=== PATIENT | female | born 1945 | race Caucasian/White ===

== ENCOUNTER 2017-08-20 15:23 | Emergency (ER) | payer OTHER ==
[~2017-08-20] VITALS: Ht 157.5 cm; Wt 60.0 kg
[2017-08-20 15:31] VITALS: BP_SYST 214; BP_SYST 215; BP_DIAS 80; BP_DIAS 91; PULSE 77; RESP 16; TEMP 98.1; O2SAT 98
[2017-08-20] MEDS ORDERED: ENALAPRILAT 2.5 MG/2 ML VIAL IV PUSH ONE (15:45)
[2017-08-20] MEDS ORDERED: SODIUM CHLORIDE 0.9% FLUSH 10 ML FLUSH IVF PRN (15:45)
[2017-08-20 15:46] VITALS: BP 204/86; PULSE 74; RESP 18; O2SAT 100
[2017-08-20 16:06] VITALS: RESP 18; O2SAT 98
--- NOTE | 2017-08-20 16:06 | PD ---
HPI Chief Complaint: Cardiac Complaint Time Seen by Provider: 15:37 Travel History International Travel<30 days: No Contact w/Intl Traveler<30days: No Traveled to known affect area: No History of Present Illness HPI Patient is a 71-year-old female presenting to [facility] for evaluation of dizziness and elevated blood pressure. Patient initially went to an urgent care center because she states she just "does not feel right". She states she has been dizzy since she went to work this morning, she does not differentiate or explain what she means by does not feel right. She denies any headache, chest pain, shortness of breath, palpitations, abdominal pain, nausea, vomiting. Patient states that her primary doctor increased her blood pressure medicine from 5 mg to 10 mg yesterday. Patient has no other complaints. Symptom onset was sudden, symptoms are mild to moderate in nature. No alleviating or exacerbating factors at this point. Patient denies any shortness of breath with exertion or edema in her extremities. PFSH Past Medical History Hypertension: Yes Social History Alcohol Use: No Tobacco Use: No Substance Use: No Allergies-Medications (Allergen,Severity, Reaction): Coded Allergies: No Known Allergies (Verified Allergy, Unknown, 08/20/17) Reported Meds & Prescriptions Reported Meds & Active Scripts Active Reported Amlodipine (Amlodipine Besylate) 5 Mg Tab 5 Mg PO DAILY Review of Systems Except as stated in HPI: all other systems reviewed are Neg HENT: Positive: Headaches, Lightheadedness Neurologic: Positive: Dizziness, No: Headache Physical Exam Narrative GENERAL: Well-developed, well-nourished, well-appearing female. Presenting in no acute distress. SKIN: Warm and dry. HEAD: Atraumatic. Normocephalic. EYES: Pupils equal and round. No scleral icterus. No injection or drainage. ENT: No nasal bleeding or discharge. Mucous membranes pink and moist. NECK: Trachea midline. No JVD. CARDIOVASCULAR: Regular rate and rhythm. RESPIRATORY: No accessory muscle use. Clear to auscultation. Breath sounds equal bilaterally. GASTROINTESTINAL: Abdomen soft, non-tender, nondistended. Hepatic and splenic margins not palpable. MUSCULOSKELETAL: Extremities without clubbing, cyanosis, or edema. No obvious deformities. NEUROLOGICAL: Awake and alert. No obvious cranial nerve deficits. Motor grossly within normal limits. Five out of 5 muscle strength in the arms and legs. Normal speech. PSYCHIATRIC: Appropriate mood and affect; insight and judgment normal. Data Data Last Documented VS Vital Signs Date Time Temp Pulse Resp B/P (MAP) Pulse Ox O2 Delivery O2 Flow Rate FiO2 08/20/17 18:50 73 18 153/76 (101) 100 Room Air 08/20/17 15:31 98.1 Orders Orders Electrocardiogram (08/20/17 15:44) Ckmb (Isoenzyme) Profile (08/20/17 15:44) Complete Blood Count With Diff (08/20/17 15:44) Comprehensive Metabolic Panel (08/20/17 15:44) Magnesium (Mg) (08/20/17 15:44) Prothrombin Time / Inr (Pt) (08/20/17 15:44) Act Partial Throm Time (Ptt) (08/20/17 15:44) Troponin I (08/20/17 15:44) Lipase (08/20/17 15:44) Chest, Single Ap (08/20/17 15:44) Ecg Monitoring (08/20/17 15:44) Bilateral Bp Monitoring (08/20/17 15:44) Iv Access Insert/Monitor (08/20/17 15:44) Oximetry (08/20/17 15:44) Oxygen Administration (08/20/17 15:44) Sodium Chloride 0.9% Flush (Ns Flush) (08/20/17 15:45) Thyroid Stimulating Hormone (08/20/17 15:44) Free Thyroxine (T4) (08/20/17 15:44) Ct Brain W/O Iv Contrast(Rout) (08/20/17 ) Enalaprilat Inj (Vasotec Inj) (08/20/17 15:45) CKMB (08/20/17 15:53) CKMB% (08/20/17 15:53) Troponin I (08/20/17 19:00) Labs Laboratory Tests Test 08/20/17 15:53 08/20/17 18:50 White Blood Count 7.9 TH/MM3 Red Blood Count 2.81 MIL/MM3 Hemoglobin 8.1 GM/DL Hematocrit 23.4 % Mean Corpuscular Volume 83.4 FL Mean Corpuscular Hemoglobin 28.8 PG Mean Corpuscular Hemoglobin Concent 34.6 % Red Cell Distribution Width 16.1 % Platelet Count 422 TH/MM3 Mean Platelet Volume 7.0 FL Neutrophils (%) (Auto) 64.2 % Lymphocytes (%) (Auto) 15.3 % Monocytes (%) (Auto) 15.3 % Eosinophils (%) (Auto) 4.4 % Basophils (%) (Auto) 0.8 % Neutrophils # (Auto) 5.0 TH/MM3 Lymphocytes # (Auto) 1.2 TH/MM3 Monocytes # (Auto) 1.2 TH/MM3 Eosinophils # (Auto) 0.3 TH/MM3 Basophils # (Auto) 0.1 TH/MM3 CBC Comment DIFF FINAL Differential Comment Prothrombin Time 9.9 SEC Prothromb Time International Ratio 1.0 RATIO Activated Partial Thromboplast Time 22.7 SEC Blood Urea Nitrogen 8 MG/DL Creatinine 0.64 MG/DL Random Glucose 98 MG/DL Total Protein 7.6 GM/DL Albumin 3.6 GM/DL Calcium Level 8.7 MG/DL Magnesium Level 2.0 MG/DL Alkaline Phosphatase 78 U/L Aspartate Amino Transf (AST/SGOT) 21 U/L Alanine Aminotransferase (ALT/SGPT) 18 U/L Total Bilirubin 0.1 MG/DL Sodium Level 138 MEQ/L Potassium Level 3.7 MEQ/L Chloride Level 103 MEQ/L Carbon Dioxide Level 24.5 MEQ/L Anion Gap 11 MEQ/L Estimat Glomerular Filtration Rate 91 ML/MIN Total Creatine Kinase 133 U/L Creatine Kinase MB 2.4 NG/ML Troponin I LESS THAN 0.02 NG/ML LESS THAN 0.02 NG/ML Lipase 191 U/L Free Thyroxine 0.96 NG/DL Thyroid Stimulating Hormone 3rd Gen 1.370 uIU/ML MDM Medical Decision Making Medical Screen Exam Complete: Yes Emergency Medical Condition: Yes Medical Record Reviewed: Yes Interpretation(s) Last Impressions Chest X-Ray 08/20/17 1544 Signed Impressions: CONCLUSION: No active disease. Head CT 08/20/17 0000 Signed Impressions: CONCLUSION: 1. Negative noncontrast CT brain. Laboratory Tests Test 08/20/17 15:53 08/20/17 18:50 White Blood Count 7.9 TH/MM3 Red Blood Count 2.81 MIL/MM3 Hemoglobin 8.1 GM/DL Hematocrit 23.4 % Mean Corpuscular Volume 83.4 FL Mean Corpuscular Hemoglobin 28.8 PG Mean Corpuscular Hemoglobin Concent 34.6 % Red Cell Distribution Width 16.1 % Platelet Count 422 TH/MM3 Mean Platelet Volume 7.0 FL Neutrophils (%) (Auto) 64.2 % Lymphocytes (%) (Auto) 15.3 % Monocytes (%) (Auto) 15.3 % Eosinophils (%) (Auto) 4.4 % Basophils (%) (Auto) 0.8 % Neutrophils # (Auto) 5.0 TH/MM3 Lymphocytes # (Auto) 1.2 TH/MM3 Monocytes # (Auto) 1.2 TH/MM3 Eosinophils # (Auto) 0.3 TH/MM3 Basophils # (Auto) 0.1 TH/MM3 CBC Comment DIFF FINAL Differential Comment Prothrombin Time 9.9 SEC Prothromb Time International Ratio 1.0 RATIO Activated Partial Thromboplast Time 22.7 SEC Blood Urea Nitrogen 8 MG/DL Creatinine 0.64 MG/DL Random Glucose 98 MG/DL Total Protein 7.6 GM/DL Albumin 3.6 GM/DL Calcium Level 8.7 MG/DL Magnesium Level 2.0 MG/DL Alkaline Phosphatase 78 U/L Aspartate Amino Transf (AST/SGOT) 21 U/L Alanine Aminotransferase (ALT/SGPT) 18 U/L Total Bilirubin 0.1 MG/DL Sodium Level 138 MEQ/L Potassium Level 3.7 MEQ/L Chloride Level 103 MEQ/L Carbon Dioxide Level 24.5 MEQ/L Anion Gap 11 MEQ/L Estimat Glomerular Filtration Rate 91 ML/MIN Total Creatine Kinase 133 U/L Creatine Kinase MB 2.4 NG/ML Troponin I LESS THAN 0.02 NG/ML LESS THAN 0.02 NG/ML Lipase 191 U/L Free Thyroxine 0.96 NG/DL Thyroid Stimulating Hormone 3rd Gen 1.370 uIU/ML Vital Signs Date Time Temp Pulse Resp B/P (MAP) Pulse Ox O2 Delivery O2 Flow Rate FiO2 08/20/17 15:46 74 18 204/86 (125) 100 Room Air 08/20/17 15:31 98.1 77 16 214/80 (124) 98 215/91 (132) Differential Diagnosis CVA versus TIA versus ACS versus [place] versus metabolic abnormality versus hypertensive urgency versus vertigo versus other Narrative Course Patient is a 71-year-old female presenting for evaluation of dizziness and vague physical complaints. Patient is hypertensive on arrival. She has a history of hypertension and her medications were adjusted yesterday. She has no complaints of chest pain or shortness of breath. Labs and imaging ordered and pending. Initial EKG shows normal sinus rhythm at a rate of 67. CT of the brain shows no acute findings Chest x-ray shows no acute disease CBC with a hemoglobin of 8.1/23.4, elevated monocytes at 15.3% Chemistry is unremarkable, thyroid panel is unremarkable. Cardiac enzymes are negative 1 set Will reassess a second troponin in 1 hour if negative patient will be discharged home with follow-up with her primary doctor. Plan of care discussed with my attending physician, Dr. Bryant prior to the end of his shift. Second troponin is negative. Patient reports feeling better. Patient is advised to follow-up with her primary doctor. She was also advised to return to emergency department for any new or worsening symptoms. Patient verbalized understanding these instructions. Patient stable for discharge. Diagnosis Primary Impression: Hypertension Qualified Codes: I10 - Essential (primary) hypertension Additional Impression: Anemia Qualified Codes: D64.89 - Other specified anemias Referrals: Primary Care Physician 2 days Patient Instructions: Anemia (ED), General Instructions, Hypertension (DC) Additional Instructions: Follow-up with your primary doctor in 2-3 days Return to emergency department for any new or worsening symptoms Continue home medications as previously prescribed Your blood pressure was elevated on arrival to the emergency department, follow- up with your primary doctor for possible medication adjustment Take lisinopril once a day as directed, do not skip doses of blood pressure medications to avoid rebound hypertension. Med/Other Pt SpecificInfo: Prescription(s) given Scripts Lisinopril (Lisinopril) 10 Mg Tab 10 MG PO DAILY, #30 TAB 0 Refills Prov: Selene Mcmullen 08/20/17 Disposition: 01 DISCHARGE HOME Condition: Stable Selene Mcmullen Aug 20, 2017 16:06
--- NOTE | 2017-08-20 16:10 | RADRPT ---
EXAM DATE: 08/20/2017 4:02 PM EDT AGE/SEX: 71 years / Female INDICATIONS: Chest pain. Possible high blood pressure. CLINICAL DATA: This is the patient's initial encounter. Patient reports that signs and symptoms have been present for 1 day and indicates a pain score of 2/10. MEDICAL/SURGICAL HISTORY: Hypertension. Chronic obstructive pulmonary disease. None. COMPARISON: No prior exams available for comparison. FINDINGS: A single AP view of the chest demonstrates the lungs to be symmetrically aerated without evidence of mass, infiltrate or effusion. The cardiomediastinal contours are unremarkable. Osseous structures a re intact. CONCLUSION: No active disease. Electronically signed by: Yoseph Smith MD 08/20/2017 4:09 PM EDT
--- NOTE | 2017-08-20 16:18 | RADRPT ---
EXAM DATE: 08/20/2017 4:15 PM EDT AGE/SEX: 71 years / Female INDICATIONS: Sent from urgent care, dizziness and heart palpitations. CLINICAL DATA: This is the patient's initial encounter. Patient reports that signs and symptoms have been present for 1 day and indicates a pain score of 0/10. MEDICAL/SURGICAL HISTORY: None. None. RADIATION DOSE: 56.35 CTDI (mGy) COMPARISON: No prior exams available for comparison. TECHNIQUE: CT of the head without contrast. Using automated exposure control and adjustment of the mA and/or kV according to patient size, radiation dose was kept as low as reasonably achievable to ob tain optimal diagnostic quality images. FINDINGS: Cerebrum: The ventricles are normal for age. No evidence of midline shift, mass lesion, hemorrhage or acute infarction. No extraaxial fluid collections are seen. Posterior Fossa: The cerebellum and brainstem are intact. The 4th ventricle is midline. The cerebe llopontine angle is unremarkable. Extracranial: The visualized portion of the orbits is intact. Skull: The calvaria is intact. No evidence of skull fracture. CONCLUSION: 1. Negative noncontrast CT brain. Electronically signed by: Adriano Boyer MD 08/20/2017 4:16 PM EDT
[2017-08-20 16:34] LABS: BASOPHIL # 0.1 TH/MM3 (0-0.2); BASOPHIL % 0.8 % (0.0-2.0); EOSINOPHIL # 0.3 TH/MM3 (0-0.4); EOSINOPHIL % 4.4 % (0.0-4.0); HEMATOCRIT 23.4 % (35.0-46.0); HEMOGLOBIN 8.1 GM/DL (11.6-15.3); LYMPH % 15.3 % (9.0-44.0); LYMPHOCYTE # 1.2 TH/MM3 (1.0-4.8); MEAN CELL VOLUME 83.4 FL (80.0-100.0); MEAN CORPUSCULAR HEMOGLOBIN 28.8 PG (27.0-34.0); MEAN CORPUSCULAR HGB CONC 34.6 % (32.0-36.0); MONO % 15.3 % (0.0-8.0); MONOCYTE # 1.2 TH/MM3 (0-0.9); NEUT % 64.2 % (16.0-70.0); PLATELET COUNT 422 TH/MM3 (150-450); RED BLOOD COUNT 2.81 MIL/MM3 (4.00-5.30); RED CELL DISTRIBUTION WIDTH 16.1 % (11.6-17.2); WHITE BLOOD COUNT 7.9 TH/MM3 (4.0-11.0)
[2017-08-20 16:39] LABS: PROTHROMBIN TIME - PATIENT 9.9 SEC (9.8-11.6)
[2017-08-20 16:40] LABS: ALBUMIN 3.6 GM/DL (3.4-5.0); ALT (GPT) 18 U/L (10-53); AST (GOT) 21 U/L (15-37); BICARBONATE 24.5 MEQ/L (21.0-32.0); BLOOD UREA NITROGEN 8 MG/DL (7-18); CALCIUM 8.7 MG/DL (8.5-10.1); CHLORIDE 103 MEQ/L (98-107); CREATININE 0.64 MG/DL (0.50-1.00); GLOMERULAR FILTRATION RATE 91 ML/MIN (>89); GLUCOSE,RANDOM 98 MG/DL (74-106); SODIUM (NA) 138 MEQ/L (136-145)
[2017-08-20 16:49] LABS: ALKALINE PHOSPHATASE 78 U/L (45-117); FREE T4 0.96 NG/DL (0.76-1.46); TOTAL BILIRUBIN ADULT 0.1 MG/DL (0.2-1.0); TOTAL PROTEIN 7.6 GM/DL (6.4-8.2); TROPONIN I LESS THAN 0.02 NG/ML (0.02-0.05)
[2017-08-20 16:59] VITALS: BP 161/72; PULSE 63; RESP 18; O2SAT 100
[2017-08-20] MEDS ORDERED: AMLO5TAB2 PO (17:02)
[2017-08-20 18:50] VITALS: BP 153/76; PULSE 73; RESP 18; O2SAT 100
[2017-08-20] MEDS ORDERED: LISI10TA3 PO (19:42)
--- NOTE | 2017-08-21 14:44 | EKG ---
Date Performed: 08/20/2017 Time Performed: 14:51:44 PTAGE: 71 years EKG: Sinus rhythm NORMAL ECG NO PREVIOUS TRACING DOCTOR: Kingsley Kamara Interpretating Date/Time 08/21/2017 14:41:17
== END 2017-08-20 20:07 | disposition home or self-care (01) ==
LOC: NEPE 15:23
DX: I10 Essential (primary) hypertension (principal); D64.89 Other specified anemias; R42 Dizziness and giddiness; R53.81 Other malaise; Z79.899 Other long term (current) drug therapy
CPT/HCPCS: 70450; 71045; 80053; 82550; 82552; 83690; 83735; 84439; 84443; 84484; 85025; 85610; 85730; 93005; 96374

== ENCOUNTER 2017-10-10 12:22 | Observation (INO) ==
--- NOTE | 2017-10-10 13:11 | XR ---
EXAM DATE: 10/10/2017 1:09 PM EDT AGE/SEX: 71 years / Female INDICATIONS: . Short of breath for 2 months CLINICAL DATA: This is the patient's initial encounter. Patient reports that signs and symptoms have been present for 2 months and indicates a pain score of 0/10. MEDICAL/SURGICAL HISTORY: Chronic obstructive pulmonary disease. Hypertension. None. COMPARISON: [facility] [place]ST SING[place] AP, 08/20/2017. . FINDINGS: PA and lateral views of the chest demonstrate the lungs to be symmetrically aerated without evidence of mass, infiltrate or effusion. The cardiomediastinal contours are unremarkable. Osseous structures are intact. CONCLUSION: Negative examination. Electronically signed by: Soham Mason MD 10/10/2017 1:10 PM EDT
[2017-10-10 14:37] LABS: Baso # (Auto) 0.1 th/mm3 (0.0-0.2); Baso % (Auto) 0.7 % (0.0-2.0); Eos # (Auto) 0.3 th/mm3 (0.0-0.4); Eos % (Auto) 3.9 % (0.0-4.0); Lymph # (Auto) 1.1 th/mm3 (1.0-4.8); Lymph % (Auto) 12.5 % (9.0-44.0); Mean Corpuscular Hemoglobin 22.1 pg (27.0-34.0); Mean Corpuscular Volume 74.3 fL (80.0-100.0); Mean Platelet Volume 6.9 fL (7.0-11.0); Mono % (Auto) 10.7 % (0.0-8.0); Neut # (Auto) 6.4 th/mm3 (1.8-7.7); Neut % (Auto) 72.2 % (16.0-70.0); Platelet Count 628 th/mm3 (150-450); Red Blood Count 1.85 mil/mm3 (4.00-5.30); Red Cell Distribution Width 18.7 % (11.6-17.2); White Blood Count 8.9 th/mm3 (4.0-11.0)
[2017-10-10 14:44] LABS: Mean Corpuscular HGB Conc 29.8 % (32.0-36.0)
[2017-10-10 14:47] LABS: Hematocrit 13.7 % (35.0-46.0); Hemoglobin 4.1 gm/dL (11.6-15.3)
[2017-10-10 14:51] LABS: Activated Partial Thrombo Time 20.8 sec (24.3-30.1); Prothrombin Time 10.2 sec (9.8-11.6)
[2017-10-10 14:53] LABS: Alanine Aminotransferase 18 U/L (10-53); Albumin 3.4 g/dL (3.4-5.0); Anion Gap 7 meq/L (5-15); Aspartate Aminotransferase 17 U/L (15-37); Blood Urea Nitrogen 10 mg/dL (7-18); Calcium 8.6 mg/dL (8.5-10.1); Carbon Dioxide 24.7 meq/L (21.0-32.0); Chloride 104 meq/L (98-107); Glomerular Filtration Rate Greater Than 89 mL/min (>89); Glucose,Random 98 mg/dL (74-106); Potassium 4.1 meq/L (3.5-5.1); Sodium 136 meq/L (136-145)
[2017-10-10 14:56] LABS: Alkaline Phosphatase 70 U/L (45-117); Total Protein 7.4 g/dL (6.4-8.2)
[2017-10-10] MEDS ORDERED: Pantoprazole Inj 40 MG Vial IV.PUSH ONE (15:25)
[2017-10-10 15:30] LABS: Stomatocytes 1+
[2017-10-10 15:31] LABS: Platelet Morphology Normal (Normal)
--- NOTE | 2017-10-10 15:38 | ED ---
HPI General Chief Complaint: Shortness of Breath/Dyspnea Stated Complaint: physent/cardiac complaint Time Seen by Provider: 10/10/17 15:05 History of Present Illness The patient was seen and examined in the presence of the nurse. This patient complains of generalized weakness and fatigue and shortness of breath. Duration 1 week. She notes that 2 weeks ago she was started on aspirin and Plavix after she had a procedure to relieve a clot in her left thigh. She denies bright red bleeding. She has been having black stools on and off for a week. No prior history of GI bleed. She had a colonoscopy in 2012. Symptom severity is moderate to severe. No alleviating factor. No exacerbating factors. Related Data Home Medications Medication Instructions Recorded Confirmed amlodipine 10 mg PO DAILY 10/10/17 10/10/17 aspirin 81 mg PO DAILY 10/10/17 10/10/17 clopidogrel [Plavix] 75 mg PO DAILY 10/10/17 10/10/17 multivitamin 1 tab PO DAILY 10/10/17 10/10/17 Allergies Allergy/AdvReac Type Severity Reaction Status Date / Time No Known Allergies Allergy Unverified 10/10/17 12:41 Review of Systems Except as stated in HPI: all other systems reviewed are negative PMFSH Medical History Medical History COPD (chronic obstructive pulmonary disease) (Acute) Social History Social History Second Hand Smoke Exposure: No Smoking Status: Former smoker Tobacco Type: Cigarettes How Often Do You Have a Drink Containing Alcohol: Never Recent Travel in [facility] within the Last 8 Weeks: No Recent Out of Country Travel within the Last 8 Weeks: No Immunization History Tetanus Immunization: Unsure Exam Narrative Exam Narrative: GENERAL: Well-nourished, well-developed patient in no apparent distress. SKIN: Focused skin assessment reveals no rash and nodules. Skin is Warm and dry. HEAD: Atraumatic. Normocephalic. EYES: Pupils equal and round. No scleral icterus. No injection or drainage. ENT: No nasal bleeding or discharge. Mucous membranes pink and moist. NECK: Trachea midline. No JVD. CARDIOVASCULAR: Regular rate and rhythm. No murmur appreciated. RESPIRATORY: No accessory muscle use. Clear to auscultation. Breath sounds equal bilaterally. GASTROINTESTINAL: Abdomen soft, non-tender, nondistended. Hepatic and splenic margins not palpable. MUSCULOSKELETAL: No obvious deformities. No clubbing. No cyanosis. No edema. NEUROLOGICAL: Awake and alert. No obvious cranial nerve deficits. Motor grossly within normal limits. Normal speech. PSYCHIATRIC: Appropriate mood and affect; insight and judgment normal. Rectal: Normal tone, no mass, dark brown stool is Hemoccult positive Course Initial Documented Vital Signs Temperature 99.0 F 10/10/17 12:41 Pulse Rate 83 10/10/17 12:41 Respiratory Rate 20 10/10/17 12:41 Blood Pressure 159/65 H 10/10/17 12:41 Pulse Oximetry 98 10/10/17 12:41 Last Documented Vital Signs Temperature 99.0 F 10/10/17 12:41 Pulse Rate 73 10/10/17 15:08 Respiratory Rate 17 10/10/17 15:08 Blood Pressure 149/67 H 10/10/17 15:08 Pulse Oximetry 98 10/10/17 15:08 Critical Care Time Critical Care Time: Yes Total Critical Care Time: 36 Attestation: Aggregate critical care time was 36 minutes. Time to perform other separately billable procedures was not included in the critical care time. My time did not include minutes spent treating any other patients simultaneously or on activities that did not directly contribute to the patient's treatment. The services I provided to this patient were to treat and/or prevent clinically significant deterioration that could result in: Cardiopulmonary arrest, hemorrhagic shock, cardiac arrhythmia I provided critical care services requiring my management, as noted below: Chart data review, documentation time, medication orders and management, vital sign assessments/reviewing monitor data, ordering and reviewing lab tests, ordering and interpreting/reviewing x-rays and diagnostic studies, care of the patient and discussion of the patient with the admitting physicians. Medical Decision Making MDM Narrative Medical decision making narrative: IV placed and labs sent. Hemoglobin is come back at 4.1 This patient has GI bleed, suspected to be upper Likely induced by aspirin and Plavix therapy, may have peptic ulcer disease. She signed informed consent after discussion. I have initiated transfusion of 4 units of packed red cells as her hemoglobin is critically low and she has active GI bleed on both aspirin and Plavix Those medications will be held. She will require inpatient care Her chest x-ray is normal. I gave her IV Protonix. Differential Diagnosis Differential Diagnosis: GI bleed, symptomatic anemia, hemolysis Medical Records Medical records reviewed: Yes I reviewed the patient's medical records. Lab Data Result diagrams: 10/10/17 13:50 10/10/17 13:50 Lab Results 10/10/17 10/10/17 10/10/17 Range/Units 13:50 13:50 13:50 WBC 8.9 (4.0-11.0) th/mm3 RBC 1.85 L (4.00-5.30) mil/mm3 Hgb 4.1 L* (11.6-15.3) gm/dL Hct 13.7 L* (35.0-46.0) % MCV 74.3 L (80.0-100.0) fL MCH 22.1 L (27.0-34.0) pg MCHC 29.8 L (32.0-36.0) % RDW 18.7 H (11.6-17.2) % Plt Count 628 H (150-450) th/mm3 MPV 6.9 L (7.0-11.0) fL Prelim Diff (Auto) Slide review pending Neut % (Auto) 72.2 H (16.0-70.0) % Lymph % (Auto) 12.5 (9.0-44.0) % Lyon % (Auto) 10.7 H (0.0-8.0) % Eos % (Auto) 3.9 (0.0-4.0) % Baso % (Auto) 0.7 (0.0-2.0) % Neut # (Auto) 6.4 (1.8-7.7) th/mm3 Lymph # (Auto) 1.1 (1.0-4.8) th/mm3 Lyon # (Auto) 1.0 H (0.0-0.9) th/mm3 Eos # (Auto) 0.3 (0.0-0.4) th/mm3 Baso # (Auto) 0.1 (0.0-0.2) th/mm3 WBC Differential . Diff Scan Auto diff confirmed Differential Comment . Platelet Estimate High H (Normal) Platelet Morphology Normal (Normal) Stomatocytes 1+ H (None) PT 10.2 (9.8-11.6) sec INR 1.0 Ratio APTT 20.8 L (24.3-30.1) sec Sodium 136 (136-145) meq/L Potassium 4.1 (3.5-5.1) meq/L Chloride 104 (98-107) meq/L Carbon Dioxide 24.7 (21.0-32.0) meq/L Anion Gap 7 (5-15) meq/L BUN 10 (7-18) mg/dL Creatinine 0.65 (0.50-1.00) mg/dL Estimated GFR Greater than 89 (>89) mL/min Random Glucose 98 (74-106) mg/dL Calcium 8.6 (8.5-10.1) mg/dL Total Bilirubin 0.2 (0.2-1.0) mg/dL AST 17 (15-37) U/L ALT 18 (10-53) U/L Alkaline Phosphatase 70 (45-117) U/L Troponin I Less than 0.02 L (0.02-0.05) ng/mL B-Natriuretic Peptide (0-100) pg/mL Total Protein 7.4 (6.4-8.2) g/dL Albumin 3.4 (3.4-5.0) g/dL Blood Type Blood Type Recheck Antibody Screen MTS Gel Crossmatch 10/10/17 10/10/17 Range/Units 13:50 15:20 WBC (4.0-11.0) th/mm3 RBC (4.00-5.30) mil/mm3 Hgb (11.6-15.3) gm/dL Hct (35.0-46.0) % MCV (80.0-100.0) fL MCH (27.0-34.0) pg MCHC (32.0-36.0) % RDW (11.6-17.2) % Plt Count (150-450) th/mm3 MPV (7.0-11.0) fL Prelim Diff (Auto) Neut % (Auto) (16.0-70.0) % Lymph % (Auto) (9.0-44.0) % Lyon % (Auto) (0.0-8.0) % Eos % (Auto) (0.0-4.0) % Baso % (Auto) (0.0-2.0) % Neut # (Auto) (1.8-7.7) th/mm3 Lymph # (Auto) (1.0-4.8) th/mm3 Lyon # (Auto) (0.0-0.9) th/mm3 Eos # (Auto) (0.0-0.4) th/mm3 Baso # (Auto) (0.0-0.2) th/mm3 WBC Differential Diff Scan Differential Comment Platelet Estimate (Normal) Platelet Morphology (Normal) Stomatocytes (None) PT (9.8-11.6) sec INR Ratio APTT (24.3-30.1) sec Sodium (136-145) meq/L Potassium (3.5-5.1) meq/L Chloride (98-107) meq/L Carbon Dioxide (21.0-32.0) meq/L Anion Gap (5-15) meq/L BUN (7-18) mg/dL Creatinine (0.50-1.00) mg/dL Estimated GFR (>89) mL/min Random Glucose (74-106) mg/dL Calcium (8.5-10.1) mg/dL Total Bilirubin (0.2-1.0) mg/dL AST (15-37) U/L ALT (10-53) U/L Alkaline Phosphatase (45-117) U/L Troponin I (0.02-0.05) ng/mL B-Natriuretic Peptide 165 H (0-100) pg/mL Total Protein (6.4-8.2) g/dL Albumin (3.4-5.0) g/dL Blood Type O Negative Blood Type Recheck Required Antibody Screen Negative MTS Gel Crossmatch See Detail Imaging Data Radiologist's impression: Chest X-Ray 10/10/17 12:44 CONCLUSION: Negative examination. Discharge Plan Discharge Disposition Patient Disposition: 30 Still Patient Discharge Details Diagnosis: Acute GI bleeding, Symptomatic anemia Physicians Team ED Provider: Saúl Jeffries Primary Care Provider: Kendall Foy V Attending Provider: Lavell Carl Discharge Interventions Interventions: Vital Signs Last Done: 10/10/17 15:08 Status ED Status: Admitted Patient
[2017-10-10] MEDS ORDERED: Sodium Chlor 0.9% Inj 250 ML IV.SIG SCH (16:00)
[2017-10-10] MEDS ORDERED: Acetaminophen 325 MG Tablet PO PRN (18:05)
[2017-10-10] MEDS ORDERED: Temazepam 15 MG Capsule PO PRN (18:05)
--- NOTE | 2017-10-10 18:15 | P.HP ---
History of Present Illness Primary Care Physician: Kendall Foy MD History of Present Illness: 71-year-old female with a history of COPD and peripheral vascular disease presents to the ER after increasing weakness and onset of melena. She states she has been feeling weak for the last few months and that she has noticed no blood in her stools up until today. She had a procedure done 2 weeks ago where a stent was placed in her left leg to reestablish adequate blood flow. Following that procedure she was given aspirin 81 mg a day and Plavix 75 mg daily. Blood work in the ER revealed a hemoglobin of 4. She has a history of COPD, states she has had difficulty breathing, but she is normal on exam. BNP drawn in the ER was slightly elevated. Inpatient Certification: I certify that the inpatient services were ordered in accordance with Medicare regulations governing the order. This includes certification that hospital inpatient services are reasonable and necessary and in the case of services not specified as inpatient-only under 42 CFR 419.22(n), that they are appropriately provided as inpatient services in accordance to with the 2-midnight benchmark under 43 CFR 412.3(e) Review of Systems Constitutional: Reports fatigue, Denies anorexia, Denies body ache(s), Denies chills, Denies daytime sleepiness, Denies excessive sweating, Denies fever(s), Denies headache(s), Denies increased appetite, Denies lack of energy, Denies malaise, Denies night sweats, Denies weakness, Denies weight gain, Denies weight loss, Denies other Ears, Nose, Mouth, and Throat: Denies abnormal hearing, Denies bleeding gums, Denies bad breath, Denies change in voice, Denies dental pain, Denies difficulty swallowing, Denies dizziness, Denies dry mouth, Denies ear discharge , Denies ear pain, Denies facial pain, Denies headache(s), Denies hearing loss, Denies hoarseness, Denies lip swelling, Denies nosebleed, Denies mouth lesions, Denies mouth pain, Denies nasal congestion, Denies nasal discharge, Denies nasal obstruction, Denies nasal trauma, Denies neck lump, Denies neck pain, Denies nose pain, Denies pain with swallowing, Denies poor balance, Denies post nasal drip, Denies ringing in the ears, Denies sinus pain, Denies sinus pressure , Denies sore throat, Denies throat swelling, Denies tongue swelling, Denies other Cardiovascular: Reports shortness of breath, Reports shortness of breath with activity, Denies chest pain, Denies chest pain at rest, Denies chest pain with activity, Denies excessive sweating, Denies fainting, Denies fast heart rate, Denies foot swelling, Denies generalized swelling, Denies irregular heart rhythm , Denies leg pain with activity, Denies leg sores, Denies leg swelling, Denies lightheadedness, Denies radiating jaw, neck or arm pain, Denies rapid, pounding , or irregular heartbeat, Denies shortness of breath when lying down, Denies shortness of breath causing sudden awakening, Denies slow heart rate, Denies other Respiratory: Reports shortness of breath, Reports shortness of breath with activity, Denies change in phlegm color, Denies chest congestion, Denies cough, Denies coughing up blood, Denies excessive phlegm production, Denies pain on inspiration, Denies pain with cough, Denies snoring, Denies stridor, Denies wheezing, Denies other Gastrointestinal: Reports black, tarry stools, Reports loose stools, Denies abdominal pain, Denies constipation, Denies vomiting Musculoskeletal: Denies abnormal walking, Denies back pain, Denies body aches, Denies decreased muscle mass, Denies deformity, Denies joint pain, Denies joint swelling, Denies limited joint movement, Denies loss of height, Denies muscle cramps, Denies muscle weakness, Denies neck pain, Denies numbness, Denies radiating pain into limb, Denies stiffness, Denies tingling, Denies other Skin/Breast: Denies acne, Denies bleeding lesions, Denies boil, Denies breast swelling, Denies breast skin changes, Denies breast pain, Denies breast lump, Denies change in breast shape, Denies change in hair, Denies change in skin color, Denies changing lesions, Denies dry skin, Denies excessive hair growth, Denies hair loss, Denies itching, Denies lesions, Denies nail changes, Denies new lesions, Denies nipple discharge, Denies non-healing lesions, Denies redness , Denies sensitivity to light, Denies rash, Denies skin pain, Denies skin ulcer , Denies sores, Denies stretch lozada, Denies unusual bruising, Denies wounds, Denies yellowing of the skin, Denies other Neurologic: Denies abnormal hearing, Denies abnormal movements, Denies abnormal speech, Denies abnormal walking, Denies behavioral changes, Denies burning sensations, Denies confusion, Denies dizziness, Denies fainting, Denies frequent falls, Denies headache(s), Denies lack of coordination, Denies localized weakness, Denies loss of vision, Denies memory loss, Denies numbness, Denies other visual disturbances, Denies radiating pain, Denies restless legs, Denies convulsions, Denies seizure-like activity, Denies sensory deficit, Denies tingling, Denies tingling/numbness/burning sensations, Denies tremor(s), Denies unsteadiness, Denies weakness, Denies other Psychiatric: Denies abnormal sleep pattern, Denies anxiety, Denies behavioral changes, Denies change in appetite, Denies change in sex drive, Denies confusion , Denies depression, Denies difficulty concentrating, Denies hearing things others do not hear, Denies hopelessness, Denies irritability, Denies lack of enjoyment, Denies memory loss, Denies mood swings, Denies panic attacks, Denies paranoia, Denies seeing things others do not see, Denies sensing things others do not sense, Denies tactile hallucinations, Denies thoughts of hurting/killing others, Denies thoughts of hurting/killing yourself, Denies other Endocrine: Denies cold intolerance, Denies excessive sweating, Denies flushing, Denies heat intolerance, Denies increased hunger, Denies increased thirst, Denies increased urination, Denies rapid, pounding, or irregular heartbeat, Denies other PMFSH - History History Provided By: Patient - Medical History Medical History: Medical History (Last Updated 10/10/17 @ 15:10 by Musa Muniz) COPD (chronic obstructive pulmonary disease) - Tobacco History Second Hand Smoke Exposure: No Tobacco Use In Past 30 Days: No Smoking Status: Former smoker Tobacco Type: Cigarettes - Alcohol History How Often Do You Have a Drink Containing Alcohol: Never - Travel History Recent Travel in the [facility] Within the Last 8 Weeks: No Recent Travel Out of the Country Within the Last 8 Weeks: No - Immunization History Tetanus Immunization: Unsure Medications and Allergies Active Medications: Active Medications Acetaminophen (Tylenol) 650 mg PO Q4H PRN PRN Reason: Temp > 100.4 Sodium Chloride (Ns Inj) 250 mls @ 15 mls/hr IV.SIG ONCE LYNNE Stop: 10/11/17 08:39 Temazepam (Restoril) 15 mg PO HS PRN PRN Reason: INSOMNIA Allergies Allergy/AdvReac Type Severity Reaction Status Date / Time No Known Allergies Allergy Unverified 10/10/17 12:41 Home Medications Medication Instructions Recorded Confirmed Type amlodipine 10 mg PO DAILY 10/10/17 10/10/17 History aspirin 81 mg PO DAILY 10/10/17 10/10/17 History clopidogrel [Plavix] 75 mg PO DAILY 10/10/17 10/10/17 History multivitamin 1 tab PO DAILY 10/10/17 10/10/17 History Exam Vital signs: Vital Signs 10/10/17 12:41 10/10/17 15:08 10/10/17 18:02 Temperature 99.0 F 98.7 F Pulse Rate 83 73 76 Respiratory Rate 20 17 24 Blood Pressure 159/65 H 149/67 H 135/58 L Pulse Oximetry 98 98 99 Intake & Output 10/09/17 10/10/17 10/10/17 18:59 06:59 18:59 Intake Total 0 / 0 Balance 0 / 0 Weight 58.967 kg Intake: Intake (Blood Product) Amt 0 / 0 Rbc As-3 Leukoreduced Unit 0 / 0 [id number] Narrative: GENERAL: AAOx3, no acute distress,pale, weak SKIN: Warm and dry, no rashes. Pale HEAD: Atraumatic. Normocephalic. EYES: Pupils equal, round, reactive to light. No scleral icterus. No injection or drainage. Pale sclera ENT: No nasal bleeding or discharge. Moist mucous membranes. Nonerythematous oropharynx. NECK: Trachea midline. No JVD. Thyroid size within normal limits. CARDIOVASCULAR: Tachycardia. No murmur, no gallops, no rubs. RESPIRATORY: Clear and equal to auscultation bilaterally. No crackles, no wheezes. No accessory muscle use. GASTROINTESTINAL: Abdomen soft, non-tender, nondistended, normal active bowel sounds. Hepatic and splenic margins not palpable. MUSCULOSKELETAL: Extremities without clubbing or cyanosis. No obvious deformities. No edema. NEUROLOGICAL: Awake and alert. No obvious cranial nerve deficits. Motor grossly within normal limits. No focal deficits. Five out of 5 muscle strength in the arms and legs. Normal speech. PSYCHIATRIC: Appropriate mood and affect; insight and judgment normal. Results - Labs CBC & Chem 7: 10/10/17 13:50 10/10/17 13:50 Labs: Laboratory Results - last 24 hr 10/10/17 10/10/17 10/10/17 13:50 13:50 13:50 WBC 8.9 RBC 1.85 L Hgb 4.1 L* Hct 13.7 L* MCV 74.3 L MCH 22.1 L MCHC 29.8 L RDW 18.7 H Plt Count 628 H MPV 6.9 L Prelim Diff (Auto) Slide review pending Neut % (Auto) 72.2 H Lymph % (Auto) 12.5 Nobles % (Auto) 10.7 H Eos % (Auto) 3.9 Baso % (Auto) 0.7 Neut # (Auto) 6.4 Lymph # (Auto) 1.1 Nobles # (Auto) 1.0 H Eos # (Auto) 0.3 Baso # (Auto) 0.1 WBC Differential . Diff Scan Auto diff confirmed Differential Comment . Platelet Estimate High H Platelet Morphology Normal Stomatocytes 1+ H PT 10.2 INR 1.0 APTT 20.8 L Sodium 136 Potassium 4.1 Chloride 104 Carbon Dioxide 24.7 Anion Gap 7 BUN 10 Creatinine 0.65 Estimated GFR Greater than 89 Random Glucose 98 Calcium 8.6 Total Bilirubin 0.2 AST 17 ALT 18 Alkaline Phosphatase 70 Troponin I Less than 0.02 L B-Natriuretic Peptide Total Protein 7.4 Albumin 3.4 Blood Type Blood Type Recheck Antibody Screen MTS Gel Crossmatch 10/10/17 10/10/17 13:50 15:20 WBC RBC Hgb Hct MCV MCH MCHC RDW Plt Count MPV Prelim Diff (Auto) Neut % (Auto) Lymph % (Auto) Nobles % (Auto) Eos % (Auto) Baso % (Auto) Neut # (Auto) Lymph # (Auto) Nobles # (Auto) Eos # (Auto) Baso # (Auto) WBC Differential Diff Scan Differential Comment Platelet Estimate Platelet Morphology Stomatocytes PT INR APTT Sodium Potassium Chloride Carbon Dioxide Anion Gap BUN Creatinine Estimated GFR Random Glucose Calcium Total Bilirubin AST ALT Alkaline Phosphatase Troponin I B-Natriuretic Peptide 165 H Total Protein Albumin Blood Type O Negative Blood Type Recheck Required Antibody Screen Negative MTS Gel Crossmatch See Detail - Imaging Impressions Chest X-Ray 10/10/17 12:44 CONCLUSION: Negative examination. Caprini VTE Risk Assessment Caprini VTE Risk Assessment: No/Low Risk (score <= 1) Caprini Risk Assessment Model: Point Value = 1 Point Value = 2 Point Value = 3 Point Value = 5 Age 41-60 Minor surgery BMI > 25 kg/m2 Swollen legs Varicose veins or History of unexplained or recurrent spontaneous Oral contraceptives or hormone replacement Sepsis (< 1 month) Serious lung disease, including pneumonia (< 1 month) Abnormal pulmonary function Acute myocardial infarction Congestive heart failure (< 1 month) History of inflammatory bowel disease Medical patient at bed rest Age 61-74 Arthroscopic surgery Major open surgery (> 45 min) Laparoscopic surgery (> 45 min) Malignancy Confined to bed (> 72 hours) Immobilizing plaster cast Central venous access Age >= 75 History of VTE Family history of VTE Factor V Leiden Prothrombin [id number] Lupus anticoagulant Anticardiolipin antibodies Elevated serum homocysteine Heparin-induced thrombocytopenia Other congenital or acquired thrombophilia Stroke (< 1 month) Elective arthroplasty Hip, pelvis, or leg fracture Acute spinal cord injury (< 1 month) Prophylaxis Regimen: Total Risk Factor Score Risk Level Prophylaxis Regimen 0-1 Low Early ambulation 2 Moderate Order ONE of the following: *Sequential Compression Device (SCD) *Heparin 5000 units SQ BID 3-4 Higher Order ONE of the following medications: *Heparin 5000 units SQ TID *Enoxaparin/Lovenox 40 mg SQ daily (WT < 150 kg, CrCl > 30 mL/min) *Enoxaparin/Lovenox 30 mg SQ daily (WT < 150 kg, CrCl > 10-29 mL/min) *Enoxaparin/Lovenox 30 mg SQ BID (WT < 150 kg, CrCl > 30 mL/min) AND/OR *Sequential Compression Device (SCD) 5 or more Highest Order ONE of the following medications: *Heparin 5000 units SQ TID (Preferred with Epidurals) *Enoxaparin/Lovenox 40 mg SQ daily (WT < 150 kg, CrCl > 30 mL/min) *Enoxaparin/Lovenox 30 mg SQ daily (WT < 150 kg, CrCl > 10-29 mL/min) *Enoxaparin/Lovenox 30 mg SQ BID (WT < 150 kg, CrCl > 30 mL/min) AND *Sequential Compression Device (SCD) Assessment and Plan - Plan GI bleed, severe anemia Onset of GI bleed was not noticed by patient, she noted melena today, hemoglobin 4 on admission Typed and crossed in the ER, 4 units of packed red blood cells ordered Plavix and aspirin is suspicious for exacerbating bleed, but not a likely cause alone Consult gastroenterology h/o COPD No active wheezing or congestion at this time We will order as needed DuoNeb's h/o hypertension Home meds include amlodipine BP meds held due to hypotension from GI bleed DVT prophylaxis SCD hose, chemoprophylaxis held due to active GI bleed
[2017-10-11 06:21] LABS: Hematocrit 29.6 % (35.0-46.0); Hemoglobin 9.9 gm/dL (11.6-15.3); Mean Corpuscular HGB Conc 33.3 % (32.0-36.0); Mean Corpuscular Hemoglobin 26.7 pg (27.0-34.0); Platelet Count 457 th/mm3 (150-450); Red Blood Count 3.69 mil/mm3 (4.00-5.30); Red Cell Distribution Width 18.1 % (11.6-17.2); White Blood Count 8.8 th/mm3 (4.0-11.0)
[2017-10-11 06:41] LABS: Anion Gap 8 meq/L (5-15); Blood Urea Nitrogen 8 mg/dL (7-18); Calcium 8.5 mg/dL (8.5-10.1); Carbon Dioxide 23.6 meq/L (21.0-32.0); Chloride 105 meq/L (98-107); Glomerular Filtration Rate Greater Than 89 mL/min (>89); Glucose,Random 83 mg/dL (74-106); Potassium 3.7 meq/L (3.5-5.1); Sodium 137 meq/L (136-145)
[2017-10-11] MEDS ORDERED: PEG 3350/E-Lyte Soln 4000 ML Bottle PO ONE ×2 (08:59→16:00)
--- NOTE | 2017-10-11 09:53 | P.CONGI ---
History of Present Illness Consult date: 10/11/17 Consult reason: Anemia Chief complaint: GI Bleed, critical anemia History of Present Illness: This is a 71 yo F with PMH significant for PAD S/P femoral stent placement on and was started on Plavix and ASA at that time. Pt reports she has been feeling very weak over the past month and today is complaining of a slight headache. Denies any SOB or chest pain. Our service has been consulted to evaluate pt for a hgb of 4 on arrival. Pt does report noticing some dark stools every other day for the past month, but denies black, tarry stools and BRB in her stools. Has 2 stools a day, denies diarrhea or constipation. Denies nausea, vomiting, abdominal pain, unintentional weight loss. Does report some occasional heartburn but states this is dependent on what she eats, takes Omeprazole as needed for relief. Last EGD and colonoscopy in 2012 at the [facility] and she states both exams were normal. Admits to drinking a few beers a night. Denies smoking. Denies NSAID use. Denies known significant family GI history. <Kadi Elizabeth - Last Filed: 10/11/17 09:42> Review of Systems Constitutional: Denies weight loss Cardiovascular: Denies chest pain Respiratory: Denies shortness of breath Gastrointestinal: Denies abdominal pain, Denies black, tarry stools, Denies bright, red blood in stools, Denies constipation, Denies loose stools, Denies nausea, Denies vomiting <Kadi Elizabeth - Last Filed: 10/11/17 09:42> [facility] [place] - History History Provided By: Patient - Medical History Medical History: Medical History (Last Reviewed 10/10/17 @ 19:55 by Abiola Pittman RN) COPD (chronic obstructive pulmonary disease) - Tobacco History Second Hand Smoke Exposure: No Tobacco Use In Past 30 Days: No Smoking Status: Former smoker Tobacco Type: Cigarettes - Alcohol History How Often Do You Have a Drink Containing Alcohol: Never - Travel History Recent Travel in the [place] Within the Last 8 Weeks: No Recent Travel Out of the Country Within the Last 8 Weeks: No - Immunization History Tetanus Immunization: Unsure <Kadi Elizabeth - Last Filed: 10/11/17 09:42> - Medical History Medical History: Medical History (Last Reviewed 10/10/17 @ 19:55 by Abiola Pittman RN) COPD (chronic obstructive pulmonary disease) <Dory Barrera - Last Filed: 10/11/17 14:46> Medications and Allergies Active Medications: Active Medications Acetaminophen (Tylenol) 650 mg PO Q4H PRN PRN Reason: Temp > 100.4 Albuterol (Duoneb Neb (Prn)) 1 ampul NEB Q4HR NEB PRN PRN Reason: DYSPNEA Temazepam (Restoril) 15 mg PO HS PRN PRN Reason: INSOMNIA <Kadi Elizabeth - Last Filed: 10/11/17 09:42> Active Medications: Active Medications Acetaminophen (Tylenol) 650 mg PO Q4H PRN PRN Reason: Temp > 100.4 Albuterol (Duoneb Neb (Prn)) 1 ampul NEB Q4HR NEB PRN PRN Reason: DYSPNEA Last Admin: 10/11/17 11:57 Dose: 1 ampul Pantoprazole Sodium (Protonix) 40 mg PO DAILY LYNNE Polyethylene Glycol/Electrolytes (Colyte Liq) 4,000 ml PO ONCE ONE Stop: 10/11/17 16:01 Temazepam (Restoril) 15 mg PO HS PRN PRN Reason: INSOMNIA <Dory Barrera - Last Filed: 10/11/17 14:46> Allergies Allergy/AdvReac Type Severity Reaction Status Date / Time No Known Allergies Allergy Unverified 10/10/17 12:41 Home Medications Medication Instructions Recorded Confirmed Type amlodipine 10 mg PO DAILY 10/10/17 10/10/17 History aspirin 81 mg PO DAILY 10/10/17 10/10/17 History clopidogrel [Plavix] 75 mg PO DAILY 10/10/17 10/10/17 History multivitamin 1 tab PO DAILY 10/10/17 10/10/17 History Exam Vital signs: Vital Signs 10/10/17 12:41 10/10/17 15:08 10/10/17 18:02 Temperature 99.0 F 98.7 F Pulse Rate 83 73 76 Respiratory Rate 20 17 24 Blood Pressure 159/65 H 149/67 H 135/58 L Pulse Oximetry 98 98 99 10/10/17 18:18 10/10/17 18:24 10/10/17 20:00 Temperature 99.2 F 99.2 F 98.7 F Pulse Rate 78 76 Respiratory Rate 24 24 20 Blood Pressure 189/78 H 189/78 H 146/64 H Pulse Oximetry 98 98 10/10/17 20:28 10/10/17 20:45 10/10/17 23:55 Temperature 98.7 F 99.4 F 98.6 F Pulse Rate 76 77 68 Respiratory Rate 21 18 18 Blood Pressure 146/64 H 160/71 H 155/70 H Pulse Oximetry 98 97 95 10/11/17 00:00 10/11/17 00:13 10/11/17 00:30 Temperature 99.5 F 99.5 F 98.8 F Pulse Rate 72 72 63 Respiratory Rate 18 22 19 Blood Pressure 150/69 H 150/69 H 182/74 H Pulse Oximetry 96 96 99 10/11/17 03:03 10/11/17 08:00 Temperature 98.8 F 98.0 F Pulse Rate 74 73 Respiratory Rate 17 18 Blood Pressure 174/74 H 168/72 H Pulse Oximetry 98 99 Intake & Output 10/10/17 10/11/17 10/11/17 18:59 06:59 18:59 Intake Total 0 / 0 820 / 820 Balance 0 / 0 820 / 820 Weight 58.967 kg Intake: Oral 420 / 420 Intake (Blood Product) Amt 0 / 0 400 / 400 Rbc As-3 Leukoreduced Unit 0 / 0 [id number] Rbc As-3 Leukoreduced Unit 0 / 0 [id number] Rbc As-3 Leukoreduced Unit 0 / 0 0 / 0 [id number] Rbc As-3 Leukoreduced Unit 400 / 400 [id number] Other: # Voids 2 - Constitutional no acute distress - Routine HEENT Exam Head: Present: normocephalic, atraumatic - Routine Respiratory Exam Absent: accessory muscle use - Routine Cardiovascular Exam Present: RRR - Routine Abdominal Exam Present: soft, normoactive bowel sounds. Absent: tenderness, distended - Routine Skin Exam Present: dry, warm - Routine Neurological Exam Present: alert, oriented X3 <Kadi Elizabeth - Last Filed: 10/11/17 09:42> Vital signs: Vital Signs 10/10/17 15:08 10/10/17 18:02 10/10/17 18:18 Temperature 98.7 F 99.2 F Pulse Rate 73 76 Respiratory Rate 17 24 24 Blood Pressure 149/67 H 135/58 L 189/78 H Pulse Oximetry 98 99 10/10/17 18:24 10/10/17 20:00 10/10/17 20:28 Temperature 99.2 F 98.7 F 98.7 F Pulse Rate 78 76 76 Respiratory Rate 24 20 21 Blood Pressure 189/78 H 146/64 H 146/64 H Pulse Oximetry 98 98 98 10/10/17 20:45 10/10/17 23:55 10/11/17 00:00 Temperature 99.4 F 98.6 F 99.5 F Pulse Rate 77 68 72 Respiratory Rate 18 18 18 Blood Pressure 160/71 H 155/70 H 150/69 H Pulse Oximetry 97 95 96 10/11/17 00:13 10/11/17 00:30 10/11/17 03:03 Temperature 99.5 F 98.8 F 98.8 F Pulse Rate 72 63 74 Respiratory Rate 22 19 17 Blood Pressure 150/69 H 182/74 H 174/74 H Pulse Oximetry 96 99 98 10/11/17 08:00 10/11/17 11:58 10/11/17 12:00 Temperature 98.0 F 98.4 F Pulse Rate 73 66 75 Respiratory Rate 18 16 18 Blood Pressure 168/72 H 140/65 Pulse Oximetry 99 97 95 Intake & Output 10/10/17 10/11/17 10/11/17 18:59 06:59 18:59 Intake Total 0 / 0 820 / 820 250 / 250 Balance 0 / 0 820 / 820 250 / 250 Weight 58.967 kg Intake: IV 250 / 250 NS Inj 250 ML @ 15 mls/hr IV. 250 / 250 SIG ONCE LYNNE Rx#:[id number] Oral 420 / 420 Intake (Blood Product) Amt 0 / 0 400 / 400 Rbc As-3 Leukoreduced Unit 0 / 0 [id number] Rbc As-3 Leukoreduced Unit 0 / 0 [id number] Rbc As-3 Leukoreduced Unit 0 / 0 0 / 0 [id number] Rbc As-3 Leukoreduced Unit 400 / 400 [id number] Other: # Voids 2 <Dory Barrera - Last Filed: 10/11/17 14:46> Results - Labs CBC & Chem 7: 10/11/17 04:40 10/11/17 04:40 Labs: Laboratory Results - last 24 hr 10/10/17 10/10/17 10/10/17 13:50 13:50 13:50 WBC 8.9 RBC 1.85 L Hgb 4.1 L* Hct 13.7 L* MCV 74.3 L MCH 22.1 L MCHC 29.8 L RDW 18.7 H Plt Count 628 H MPV 6.9 L Prelim Diff (Auto) Slide review pending Neut % (Auto) 72.2 H Lymph % (Auto) 12.5 Emm[place] % (Auto) 10.7 H Eos % (Auto) 3.9 Baso % (Auto) 0.7 Neut # (Auto) 6.4 Lymph # (Auto) 1.1 Emmet # (Auto) 1.0 H Eos # (Auto) 0.3 Baso # (Auto) 0.1 WBC Differential . Diff Scan Auto diff confirmed Differential Comment . Platelet Estimate High H Platelet Morphology Normal Stomatocytes 1+ H PT 10.2 INR 1.0 APTT 20.8 L Sodium 136 Potassium 4.1 Chloride 104 Carbon Dioxide 24.7 Anion Gap 7 BUN 10 Creatinine 0.65 Estimated GFR Greater than 89 Random Glucose 98 Calcium 8.6 Total Bilirubin 0.2 AST 17 ALT 18 Alkaline Phosphatase 70 Troponin I Less than 0.02 L B-Natriuretic Peptide Total Protein 7.4 Albumin 3.4 Blood Type Blood Type Recheck Antibody Screen MTS Gel Crossmatch 10/10/17 10/10/17 10/11/17 13:50 15:20 04:40 WBC 8.8 RBC 3.69 L Hgb 9.9 L D Hct 29.6 L MCV 80.0 D MCH 26.7 L MCHC 33.3 RDW 18.1 H Plt Count 457 H MPV 7.0 Prelim Diff (Auto) Neut % (Auto) Lymph % (Auto) Emm[place] % (Auto) Eos % (Auto) Baso % (Auto) Neut # (Auto) Lymph # (Auto) Emm[place] # (Auto) Eos # (Auto) Baso # (Auto) WBC Differential Diff Scan Differential Comment Platelet Estimate Platelet Morphology Stomatocytes PT INR APTT Sodium Potassium Chloride Carbon Dioxide Anion Gap BUN Creatinine Estimated GFR Random Glucose Calcium Total Bilirubin AST ALT Alkaline Phosphatase Troponin I B-Natriuretic Peptide 165 H Total Protein Albumin Blood Type O Negative Blood Type Recheck Required Antibody Screen Negative MTS Gel Crossmatch See Detail 10/11/17 04:40 WBC RBC Hgb Hct MCV MCH MCHC RDW Plt Count MPV Prelim Diff (Auto) Neut % (Auto) Lymph % (Auto) Emmet % (Auto) Eos % (Auto) Baso % (Auto) Neut # (Auto) Lymph # (Auto) Emmet # (Auto) Eos # (Auto) Baso # (Auto) WBC Differential Diff Scan Differential Comment Platelet Estimate Platelet Morphology Stomatocytes PT INR APTT Sodium 137 Potassium 3.7 Chloride 105 Carbon Dioxide 23.6 Anion Gap 8 BUN 8 Creatinine 0.54 Estimated GFR Greater than 89 Random Glucose 83 Calcium 8.5 Total Bilirubin AST ALT Alkaline Phosphatase Troponin I B-Natriuretic Peptide Total Protein Albumin Blood Type Blood Type Recheck Antibody Screen MTS Gel Crossmatch - Imaging Impressions Chest X-Ray 10/10/17 12:44 CONCLUSION: Negative examination. <Kadi Elizabeth - Last Filed: 10/11/17 09:42> - Labs CBC & Chem 7: 10/11/17 04:40 10/11/17 04:40 Labs: Laboratory Results - last 24 hr 10/10/17 10/10/17 10/10/17 13:50 13:50 13:50 WBC 8.9 RBC 1.85 L Hgb 4.1 L* Hct 13.7 L* MCV 74.3 L MCH 22.1 L MCHC 29.8 L RDW 18.7 H Plt Count 628 H MPV 6.9 L Prelim Diff (Auto) Slide review pending Neut % (Auto) 72.2 H Lymph % (Auto) 12.5 Emmet % (Auto) 10.7 H Eos % (Auto) 3.9 Baso % (Auto) 0.7 Neut # (Auto) 6.4 Lymph # (Auto) 1.1 Emmet # (Auto) 1.0 H Eos # (Auto) 0.3 Baso # (Auto) 0.1 WBC Differential . Diff Scan Auto diff confirmed Differential Comment . Platelet Estimate High H Platelet Morphology Normal Stomatocytes 1+ H PT 10.2 INR 1.0 APTT 20.8 L Sodium 136 Potassium 4.1 Chloride 104 Carbon Dioxide 24.7 Anion Gap 7 BUN 10 Creatinine 0.65 Estimated GFR Greater than 89 Random Glucose 98 Calcium 8.6 Total Bilirubin 0.2 AST 17 ALT 18 Alkaline Phosphatase 70 Troponin I Less than 0.02 L B-Natriuretic Peptide Total Protein 7.4 Albumin 3.4 Blood Type Blood Type Recheck Antibody Screen MTS Gel Crossmatch 10/10/17 10/10/17 10/11/17 13:50 15:20 04:40 WBC 8.8 RBC 3.69 L Hgb 9.9 L D Hct 29.6 L MCV 80.0 D MCH 26.7 L MCHC 33.3 RDW 18.1 H Plt Count 457 H MPV 7.0 Prelim Diff (Auto) Neut % (Auto) Lymph % (Auto) Emmet % (Auto) Eos % (Auto) Baso % (Auto) Neut # (Auto) Lymph # (Auto) Emmet # (Auto) Eos # (Auto) Baso # (Auto) WBC Differential Diff Scan Differential Comment Platelet Estimate Platelet Morphology Stomatocytes PT INR APTT Sodium Potassium Chloride Carbon Dioxide Anion Gap BUN Creatinine Estimated GFR Random Glucose Calcium Total Bilirubin AST ALT Alkaline Phosphatase Troponin I B-Natriuretic Peptide 165 H Total Protein Albumin Blood Type O Negative Blood Type Recheck Required Antibody Screen Negative MTS Gel Crossmatch See Detail 10/11/17 04:40 WBC RBC Hgb Hct MCV MCH MCHC RDW Plt Count MPV Prelim Diff (Auto) Neut % (Auto) Lymph % (Auto) Emmet % (Auto) Eos % (Auto) Baso % (Auto) Neut # (Auto) Lymph # (Auto) Emmet # (Auto) Eos # (Auto) Baso # (Auto) WBC Differential Diff Scan Differential Comment Platelet Estimate Platelet Morphology Stomatocytes PT INR APTT Sodium 137 Potassium 3.7 Chloride 105 Carbon Dioxide 23.6 Anion Gap 8 BUN 8 Creatinine 0.54 Estimated GFR Greater than 89 Random Glucose 83 Calcium 8.5 Total Bilirubin AST ALT Alkaline Phosphatase Troponin I B-Natriuretic Peptide Total Protein Albumin Blood Type Blood Type Recheck Antibody Screen MTS Gel Crossmatch <Dory Barrera - Last Filed: 10/11/17 14:46> Assessment and Plan - Plan Assessment: - Anemia microcytic, hypochromic H/H on admission 4.1/13.7 S/P 4 U PRBCs currently 9.9/29.6 Pt with history of PAD S/P femoral stent placed on September [address] Singireddy , was placed on Plavix and ASA at that time. Reports of weakness for over a month. Denies SOB and chest pain. Reports of dark stools every other day but denies black, tarry stools and hematochezia. Approximately 2 stools a day. Denies constipation and diarrhea. Denies nausea, vomiting, abdominal pain. Occasional acid reflux dependent on what she eats, takes Omeprazole as needed. Denies history of anemia, previous blood transfusion, does not take B12 or iron supplements Last EGD and colonoscopy in 2012 at the [facility] and states both exams were normal. Drinks a few beers a night. Denies smoking. Denies NSAID use. Plan: EGD and colonoscopy tomorrow Obtain consent Clear liquids today Golytely prep NPO after MN Monitor H/H Transfuse as needed Further recommendations to follow Pt has been seen and examined by myself and Dr. Barrera and this note is written on his behalf <Kadi Elizabeth - Last Filed: 10/11/17 09:42> - Plan Seen and examined, no active bleeding reported. EGD/Colonoscopy tomorrow. - Attending Attestation The exam, history, and the medical decision-making described in the above note were completed with the assistance of the mid-level provider. I reviewed and agree with the findings presented. I attest that I had a [id number] encounter with the patient on the same day, and personally performed and documented my assessment and findings in the medical record. <Dory Barrera - Last Filed: 10/11/17 14:46>
--- NOTE | 2017-10-11 13:09 | P.PN ---
Subjective Interval history: Follow-up for peripheral vascular disease, anemia due to GI bleed. She does currently doing well. She denies any chest pain, shortness of breath, fever or chills. No fever or chills. Physical Exam Vital signs: Vital Signs 10/10/17 15:08 10/10/17 18:02 10/10/17 18:18 Temperature 98.7 F 99.2 F Pulse Rate 73 76 Respiratory Rate 17 24 24 Blood Pressure 149/67 H 135/58 L 189/78 H Pulse Oximetry 98 99 10/10/17 18:24 10/10/17 20:00 10/10/17 20:28 Temperature 99.2 F 98.7 F 98.7 F Pulse Rate 78 76 76 Respiratory Rate 24 20 21 Blood Pressure 189/78 H 146/64 H 146/64 H Pulse Oximetry 98 98 98 10/10/17 20:45 10/10/17 23:55 10/11/17 00:00 Temperature 99.4 F 98.6 F 99.5 F Pulse Rate 77 68 72 Respiratory Rate 18 18 18 Blood Pressure 160/71 H 155/70 H 150/69 H Pulse Oximetry 97 95 96 10/11/17 00:13 10/11/17 00:30 10/11/17 03:03 Temperature 99.5 F 98.8 F 98.8 F Pulse Rate 72 63 74 Respiratory Rate 22 19 17 Blood Pressure 150/69 H 182/74 H 174/74 H Pulse Oximetry 96 99 98 10/11/17 08:00 10/11/17 11:58 10/11/17 12:00 Temperature 98.0 F 98.4 F Pulse Rate 73 66 75 Respiratory Rate 18 16 18 Blood Pressure 168/72 H 140/65 Pulse Oximetry 99 97 95 Intake & Output 10/10/17 10/11/17 10/11/17 18:59 06:59 18:59 Intake Total 0 / 0 820 / 820 250 / 250 Balance 0 / 0 820 / 820 250 / 250 Weight 58.967 kg Intake: IV 250 / 250 NS Inj 250 ML @ 15 mls/hr IV. 250 / 250 SIG ONCE LYNNE Rx#:[id number] Oral 420 / 420 Intake (Blood Product) Amt 0 / 0 400 / 400 Rbc As-3 Leukoreduced Unit 0 / 0 [id number] Rbc As-3 Leukoreduced Unit 0 / 0 [id number] Rbc As-3 Leukoreduced Unit 0 / 0 0 / 0 [id number] Rbc As-3 Leukoreduced Unit 400 / 400 [id number] Other: # Voids 2 Narrative: GENERAL: Alert, oriented 3, NAD. SKIN: Warm and dry. HEAD: Normocephalic. EYES: No scleral icterus. No injection or drainage. NECK: Supple, trachea midline. No JVD or lymphadenopathy. CARDIOVASCULAR: Regular rate and rhythm without murmurs, gallops, or rubs. RESPIRATORY: Breath sounds equal bilaterally. No accessory muscle use. GASTROINTESTINAL: Abdomen soft, non-tender, nondistended. MUSCULOSKELETAL: No cyanosis, or edema. BACK: Nontender without obvious deformity. No CVA tenderness. Results - Labs CBC & Chem 7: 10/11/17 04:40 10/11/17 04:40 Laboratory Results - last 24 hr 10/10/17 10/10/17 10/10/17 13:50 13:50 13:50 WBC 8.9 RBC 1.85 L Hgb 4.1 L* Hct 13.7 L* MCV 74.3 L MCH 22.1 L MCHC 29.8 L RDW 18.7 H Plt Count 628 H MPV 6.9 L Prelim Diff (Auto) Slide review pending Neut % (Auto) 72.2 H Lymph % (Auto) 12.5 [place] % (Auto) 10.7 H Eos % (Auto) 3.9 Baso % (Auto) 0.7 Neut # (Auto) 6.4 Lymph # (Auto) 1.1 [place] # (Auto) 1.0 H Eos # (Auto) 0.3 Baso # (Auto) 0.1 WBC Differential . Diff Scan Auto diff confirmed Differential Comment . Platelet Estimate High H Platelet Morphology Normal Stomatocytes 1+ H PT 10.2 INR 1.0 APTT 20.8 L Sodium 136 Potassium 4.1 Chloride 104 Carbon Dioxide 24.7 Anion Gap 7 BUN 10 Creatinine 0.65 Estimated GFR Greater than 89 Random Glucose 98 Calcium 8.6 Total Bilirubin 0.2 AST 17 ALT 18 Alkaline Phosphatase 70 Troponin I Less than 0.02 L B-Natriuretic Peptide Total Protein 7.4 Albumin 3.4 Blood Type Blood Type Recheck Antibody Screen MTS Gel Crossmatch 0710/10/17 10/11/17 13:50 15:20 04:40 WBC 8.8 RBC 3.69 L Hgb 9.9 L D Hct 29.6 L MCV 80.0 D MCH 26.7 L MCHC 33.3 RDW 18.1 H Plt Count 457 H MPV 7.0 Prelim Diff (Auto) Neut % (Auto) Lymph % (Auto) [place] % (Auto) Eos % (Auto) Baso % (Auto) Neut # (Auto) Lymph # (Auto) [place] # (Auto) Eos # (Auto) Baso # (Auto) WBC Differential Diff Scan Differential Comment Platelet Estimate Platelet Morphology Stomatocytes PT INR APTT Sodium Potassium Chloride Carbon Dioxide Anion Gap BUN Creatinine Estimated GFR Random Glucose Calcium Total Bilirubin AST ALT Alkaline Phosphatase Troponin I B-Natriuretic Peptide 165 H Total Protein Albumin Blood Type O Negative Blood Type Recheck Required Antibody Screen Negative MTS Gel Crossmatch See Detail 10/11/17 04:40 WBC RBC Hgb Hct MCV MCH MCHC RDW Plt Count MPV Prelim Diff (Auto) Neut % (Auto) Lymph % (Auto) [place] % (Auto) Eos % (Auto) Baso % (Auto) Neut # (Auto) Lymph # (Auto) [place] # (Auto) Eos # (Auto) Baso # (Auto) WBC Differential Diff Scan Differential Comment Platelet Estimate Platelet Morphology Stomatocytes PT INR APTT Sodium 137 Potassium 3.7 Chloride 105 Carbon Dioxide 23.6 Anion Gap 8 BUN 8 Creatinine 0.54 Estimated GFR Greater than 89 Random Glucose 83 Calcium 8.5 Total Bilirubin AST ALT Alkaline Phosphatase Troponin I B-Natriuretic Peptide Total Protein Albumin Blood Type Blood Type Recheck Antibody Screen MTS Gel Crossmatch - Imaging Impressions Chest X-Ray 10/10/17 12:44 CONCLUSION: Negative examination. Assessment and Plan - Plan Ms. Cesar is a pleasant 71-year-old female with a history of COPD, peripheral vascular disease currently on aspirin and Plavix who presented to the emergency department due to increased shortness of breath as well as weakness and melena. Her hemoglobin on admission was 4.0. She received 4 units of PRBCs. GI was consulted. Symptomatic anemia due to GI blood loss - Start Protonix 40mg Qday. - would prefer to stop Aspirin and continue Plavix for PVD. Pt will discuss with her vascular surgeon. - EGD/Colonoscopy on 10/12/2017 PVD - Follows up with outpatient Vascular surgery. Hx of Hypertension - Will re-start Amlodipine at a reduced dose of 5mg Qday. Full code. No Pharmacological DVT prophylaxis. Likely d/c tomorrow.
--- NOTE | 2017-10-11 14:40 | ECG ---
Date Performed: 10/10/2017 Time Performed: 13:40:59 PTAGE: 71 years EKG: Sinus rhythm POSSIBLE RIGHT VENTRICULAR CONDUCTION DELAY Precordial leads likely reversed, otherwise no significa nt change BORDERLINE ECG PREVIOUS TRACING : 08/20/2017 14.51 DOCTOR: Storm Bradshaw Interpretating Date/Time 10/11/2017 14:39:16
[2017-10-11] MEDS ORDERED: Metoprolol Tartrate 25 MG Tablet PO SCH (20:00)
[2017-10-11] MEDS ORDERED: Sodium Chlor 0.9% Inj 500 ML IV.SIG SCH (20:00)
[2017-10-11] MEDS ORDERED: Chlorhexidine Gluconate 2% 1 Pack (2 Cloths) TOPICAL SCH (20:00)
--- NOTE | 2017-10-12 09:34 | GIPROC ---
[facility] [address] [facility]. [facility], [address] EGD PROCEDURE REPORT EXAM DATE: 10/12/2017 PATIENT NAME: Gracie Cesar MR #: [id number] BIRTHDATE: 1945 ATTENDING: Dory Barrera MD ORDER #: [id number] QUALITY ASSURANCE TECH: Kasie James Powell, Bianca, Hunter, Jordan, and Saniya Marquez STATUS: inpatient INDICATIONS: The patient is a 71 yr old female here for an EGD due to iron deficiency anemia and melena PROCEDURE PERFORMED: EGD w/ biopsy MEDICATIONS: None and Per Anesthesia. TOPICAL ANESTHETIC: CONSENT: The patient understands the risks and benefits of the procedure and understands that these risks include, but are not limited to: sedation, allergic reaction, infection, perforation and/or bleeding. Alternative means of evaluation and treatment include, among others: physical exam, x-rays, and/or surgical intervention. The patient elects to proceed with this endoscopic procedure. medical equipment was checked for proper function. Hand hygiene and appropriate measures for infection prevention was taken. After the risks, benefits and alternatives of the procedure were thoroughly explained, Informed consent was verified, confirmed and timeout was successfully executed by the treatment team. The patient was anesthetized with topical anesthesia and the EC-[id number] (Pedi C) endoscope was introduced through the mouth and advanced to the second portion of the duodenum. Retroflexed views revealed a hiatal hernia The gastroscope was then slowly withdrawn and removed. ESOPHAGUS: There was LA Class A esophagitis noted. A biopsy was performed using cold forceps. Sample sent for histology. STOMACH: The mucosa of the stomach appeared normal. DUODENUM: Three non-bleeding, deep, irregular shaped and clean-based ulcers measuring 15 x 20mm in size with surrounding edema and heaped up edges were found in the 1st part of the duodenum. Biopsies were taken around the ulcers. ADVERSE EVENTS: There were no complications. IMPRESSIONS: 1. There was LA Class A esophagitis noted; biopsy was performed 2. The mucosa of the stomach appeared normal 3. Three ulcers measuring 15 x 20mm in size were found in the 1st part of the duodenum; biopsies were taken 4. Retroflexed views revealed a hiatal hernia RECOMMENDATIONS: 1. Await biopsy results. Biopsy results will not be ready for 7-10 days. If you don't hear from us in two weeks, call our office for biopsy results. 2. Anti-reflux regimen 3. Continue PPI 4. Avoid NSAIDS PATIENT CONDITION: stable DISPOSITION: Inpatient REPEAT EXAM: Return 2 months EGD pending biopsy results Dory Barrera MD eSigned: Dory Barrera MD 10/12/2017 9:33 AM cc: PATIENT NAME: Gracie Cesar MR#: [id number]
--- NOTE | 2017-10-12 09:49 | GIPROC ---
[facility] [address] [facility]. [facility], [address] COLONOSCOPY PROCEDURE REPORT EXAM DATE: 10/12/2017 PATIENT NAME: Gracie Cesar MR #: [id number] BIRTHDATE: 1945 ENDOSCOPIST: Dory Barrera MD ORDER #: [id number] DYNAMICS AX DEVELOPER: Kasie James Powell, Bianca, Jones, Julie, and Rico Medina STATUS: inpatient INDICATIONS: The patient is a 71 yr old female here for a colonoscopy due to iron deficiency anemia PROCEDURE PERFORMED: Colonoscopy with biopsy MEDICATIONS: None and Per Anesthesia. PREP QUALITY: The [place] Bowel Prep Score was Right colon 3, Mid colon 2, and Left colon 3. Total = 8. PREP TYPE:GoLytely ESTIMATED BLOOD LOSS: None CONSENT: The patient understands the risks and benefits of the procedure and understands that these risks include, but are not limited to: sedation, allergic reaction, infection, perforation and/or bleeding. Alternative means of evaluation and treatment include, among others: physical exam, x-rays, and/or surgical intervention. The patient elects to proceed with this endoscopic procedure. medical equipment was checked for proper function. Hand hygiene and appropriate measures for infection prevention was taken. After the risks, benefits and alternatives of the procedure were thoroughly explained, Informed consent was verified, confirmed and timeout was successfully executed by the treatment team. A digital exam revealed external hemorrhoids The Pentax EC-[id number] endoscope was introduced through the anus and advanced to the cecum, which was identified by both the appendix and ileocecal valve. The instrument was then slowly withdrawn as the colon was fully examined. COLON FINDINGS: Severe diverticulosis was noted in the sigmoid colon. No bleeding was noted from the diverticulosis. A polypoid shaped sessile polyp ranging between 3-5mm in size was found in the sigmoid colon. Multiple biopsies were performed using cold forceps. Retroflexed views revealed internal hemorrhoids, Retroflexed views revealed medium internal hemorrhoids, and Retroflexed views revealed internal hemorrhoids The scope was then completely withdrawn from the patient and the procedure terminated. PROCEDURE WITHDRAWAL TIME:7minutes ADVERSE EVENTS: There were no complications. IMPRESSIONS: 1. Severe diverticulosis was noted in the sigmoid colon 2. A sessile polyp ranging between 3-5mm in size was found in the sigmoid colon; multiple biopsies were performed using cold forceps 3. Retroflexed views revealed internal hemorrhoids 4. Retroflexed views revealed medium internal hemorrhoids 5. Retroflexed views revealed internal hemorrhoids 6. Revealed external hemorrhoids RECOMMENDATIONS: 1. Await biopsy results. Biopsy results will not be ready for 7-10 days. If you don't hear from us in two weeks, call our office for results. 2. Benefiber 2 tsp daily 3. Continue surveillance 4. Yearly hemoccult 5. High fiber diet 6. No seeds, nuts and popcorn in diet RECALL: Return 5 years Colonoscopy, pending biopsy results Dory Barrera MD eSigned: Dory Barrera MD 10/12/2017 9:49 AM cc: PATIENT NAME: Graice Cesar MR#: [id number]
--- NOTE | 2017-10-12 11:36 | P.DS ---
Date of admission: 10/10/17 17:42 Primary care physician: Kendall Foy MD Brief History from admission: 71-year-old female with a history of COPD and peripheral vascular disease presents to the ER after increasing weakness and onset of melena. She states she has been feeling weak for the last few months and that she has noticed no blood in her stools up until today. She had a procedure done 2 weeks ago where a stent was placed in her left leg to reestablish adequate blood flow. Following that procedure she was given aspirin 81 mg a day and Plavix 75 mg daily. Blood work in the ER revealed a hemoglobin of 4. She has a history of COPD, states she has had difficulty breathing, but she is normal on exam. BNP drawn in the ER was slightly elevated. DS: Medications - Discharge Medications Prescriptions: pantoprazole 40 mg PO DAILY #90 tab DS: Summary Hospital Course: Ms. Cesar is a pleasant 71-year-old female with a history of COPD, peripheral vascular disease currently on aspirin and Plavix who presented to the emergency department due to increased shortness of breath as well as weakness and melena. Her hemoglobin on admission was 4.0. She received 4 units of PRBCs. GI was consulted. Symptomatic anemia due to GI blood loss - Protonix 40mg Qday. - would prefer to stop Aspirin and continue Plavix for PVD. Pt will discuss with her vascular surgeon. - EGD/Colonoscopy on 10/12/2017 - shows duodenal ulcer and sigmoid colonic polyp. Follow up with GI. PVD - Follows up with outpatient Vascular surgery. Hx of Hypertension - Continue Amlodipine. Full code. - Time Spent with Patient Total time spent providing and/or coordinating discharge services: Less than 30 minutes Exam Vital signs: Vital Signs 10/11/17 11:58 10/11/17 12:00 10/11/17 16:00 Temperature 98.4 F 98.8 F Pulse Rate 66 75 68 Respiratory Rate 16 18 18 Blood Pressure 140/65 191/74 H Pulse Oximetry 97 95 99 10/11/17 20:00 10/11/17 20:22 10/11/17 23:41 Temperature 98.6 F 98.4 F Pulse Rate 66 59 L Respiratory Rate 16 16 Blood Pressure 196/77 H 151/65 H Pulse Oximetry 99 98 99 10/12/17 03:54 10/12/17 07:01 10/12/17 08:00 Temperature 98.5 F 98.5 F Pulse Rate 62 59 L 75 Respiratory Rate 17 18 Blood Pressure 145/65 H 145/65 H Pulse Oximetry 97 99 10/12/17 09:54 10/12/17 10:07 10/12/17 10:45 Temperature 98.5 F 98.2 F Pulse Rate 60 62 57 L Respiratory Rate 16 16 Blood Pressure 131/61 157/69 H Pulse Oximetry 100 98 Intake & Output 10/11/17 10/12/17 10/12/17 18:59 06:59 18:59 Intake Total 490 / 490 Balance 490 / 490 Intake: IV 250 / 250 NS Inj 250 ML @ 15 mls/hr IV. 250 / 250 SIG ONCE LYNNE Rx#:[id number] Oral 240 / 240 Other: # Voids 2 Results Procedures completed during hospitalization: EGD, Colonoscopy. Pending studies at discharge: Pending at discharge 10/12/17 Surgical [PTH] Routine - Impressions ITS Impressions Chest X-Ray 10/10/17 12:44 CONCLUSION: Negative examination. Discharge Plan - Discharge Disposition Patient Disposition: Discharge Home - Discharge Condition Condition: Good - Discharge Order Discharge Orders: Discharge Order (Routine); Ordered 10/12/17 Ordered By: Yelena Macias - Discharge Details Anticipated Discharge Date: 10/12/17 - Physicians Team Primary Care Provider: Kendall Foy V Attending Provider: Yelena Macias Other Providers: Dory Barrera MD ; [employer]
[2017-10-12] MEDS ORDERED: Succinylcholine Inj 100 MG/5 ML Syringe IV.PUSH ONE (12:00)
[2017-10-12] MEDS ORDERED: Glycopyrrolate Inj 1 MG/5 ML Syringe IV.PUSH ONE (12:00)
[2017-10-12] MEDS ORDERED: Lidocaine PF 1% Inj 5 ML Syringe INFILTRATN ONE (12:00)
[2017-10-12 12:07] VITALS: BP 144/66; PULSE 62; RESP 18; TEMP 98; O2SAT 97
== END 2017-10-12 14:07 | disposition home or self-care (01) ==
LOC: NEPFCDU 12:22 → NEPE 12:22 → NEDA 17:42 → INTOOBSV 17:42 → NEPFCDU 19:17
PROVIDERS: ADMIT Hospitalist; ATTEND Hospitalist
PROC: PANENDO (2017-10-12 09:21)
PROC: COLONOS (2017-10-12 09:21)

== ENCOUNTER 2018-03-08 09:22 | Inpatient (IN) ==
[2018-03-08] MEDS ORDERED: Sodium Chlor 0.9% Inj 500 ML IV.CONT ONE (10:15)
[2018-03-08] MEDS ORDERED: Metoprolol Tartrate 25 MG Tablet PO ONE (10:15)
[2018-03-08] MEDS ORDERED: Chlorhexidine Gluconate 2% 1 Pack (2 Cloths) TOPICAL ONE (10:15)
[2018-03-08] MEDS ORDERED: ceFAZolin 2 GM IV; once IV.SIG SCH (11:00)
[2018-03-08 11:03] LABS: Baso # (Auto) 0.1 th/mm3 (0.0-0.2); Baso % (Auto) 1.4 % (0.0-2.0); Eos # (Auto) 0.2 th/mm3 (0.0-0.4); Eos % (Auto) 3.1 % (0.0-4.0); Hematocrit 29.3 % (35.0-46.0); Hemoglobin 9.5 gm/dL (11.6-15.3); Lymph # (Auto) 0.7 th/mm3 (1.0-4.8); Lymph % (Auto) 11.6 % (9.0-44.0); Mean Corpuscular HGB Conc 32.4 % (32.0-36.0); Mean Corpuscular Hemoglobin 30.7 pg (27.0-34.0); Mean Corpuscular Volume 94.9 fL (80.0-100.0); Mean Platelet Volume 6.7 fL (7.0-11.0); Mono # (Auto) 1.1 th/mm3 (0.0-0.9); Mono % (Auto) 18.2 % (0.0-8.0); Neut # (Auto) 4.1 th/mm3 (1.8-7.7); Neut % (Auto) 65.7 % (16.0-70.0); Platelet Count 425 th/mm3 (150-450); Red Blood Count 3.09 mil/mm3 (4.00-5.30); Red Cell Distribution Width 14.9 % (11.6-17.2); White Blood Count 6.2 th/mm3 (4.0-11.0)
[2018-03-08] MEDS ORDERED: Bupivacaine Liposomal PF 1.3% Inj 20 ML Vial ONE ×2 (15:05)
[2018-03-08] MEDS ORDERED: Post-op Orders (for Pharmacy) OTHER ONE (15:39)
[2018-03-08] MEDS ORDERED: Naloxone Inj 0.4 MG/ML Vial IV.PUSH PRN ×2 (15:39→17:05)
[2018-03-08] MEDS ORDERED: Benzocaine 20% Oral Spray 60 ML Can OROPHARYNG PRN (15:39)
[2018-03-08] MEDS ORDERED: Promethazine 25 MG Supp RECTAL PRN (15:39)
[2018-03-08] MEDS ORDERED: fentaNYL Citrate Inj 100 MCG/2 ML Ampul ONE (15:55)
[2018-03-08] MEDS ORDERED: Morphine Inj 4 MG/ML Vial ONE (15:56)
[2018-03-08] MEDS ORDERED: Enoxaparin Inj 40 MG/0.4 ML Syringe SQ ONE (16:00)
[2018-03-08] MEDS ORDERED: *morphine SULFATE 8 MG/ML PERIprocedure ONLY ONE (16:01)
[2018-03-08] MEDS ORDERED: HYDROmorphone PF Inj 0.5 MG/0.5 ML Syringe ONE ×2 (16:18→16:56)
[2018-03-08] MEDS ORDERED: HYDROmorphone PCA Inj 6 MG/30 ML PCA.VIAL PCA ONE (16:27)
[2018-03-08] MEDS: Sod Chloride 0.9% Inj 1,000 ML IV.CONT SCH (16:35)
[2018-03-08] MEDS: Pantoprazole Inj 40 MG Vial IV.PUSH SCH (16:51)
[2018-03-08] MEDS: HYDROmorphone PCA Inj 6 MG/30 ML PCA.VIAL PCA PRN (17:12)
--- NOTE | 2018-03-08 18:01 | ECG ---
Date Performed: 03/08/2018 Time Performed: 10:14:33 PTAGE: 72 years EKG: Sinus rhythm WITH OCCASIONAL VENTRICULAR PREMATURE COMPLEXES BORDERLINE ECG PREVIOUS TRACING : 10/10/2017 13.40 Since the previous tracing, no significant change noted DOCTOR: Chirag Murillo Interpretating Date/Time 03/08/2018 18:00:01
[2018-03-08] MEDS: ceFAZolin 1 GM Premix Inj 1 GM/50 ML PIGGYBACK IV.SIG SCH (21:07)
--- NOTE | 2018-03-09 01:02 | MP ---
cc: Doroteo Webber MD DATE OF OPERATION: 03/08/2018 PREOPERATIVE DIAGNOSES: 1. Large lexii hepatis mass. 2. Duodenal ulceration. 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 PROCEDURES: 1. Diagnostic arthroscopy and staging laparoscopy converted to open exploratory laparotomy. 2. Biopsy of lexii hepatis lymph node (excisional biopsy) and intraoperative consultation with pathology. 3. Open cholecystectomy. 4. Open Jerrell-en-Y gastrojejunostomy. 5. Placement of Seprafilm anti-adhesion barrier. ANESTHESIA: General and regional TAP block. ATTENDING SURGEON: Doroteo Webber MD SENIOR STRUCTURAL ENGINEER: Staff. ESTIMATED BLOOD LOSS: 25 mL. COMPLICATIONS: None. FINDINGS: 1. Lexii hepatis completely encased 360 degrees with tumor and matted lymph nodes contiguous with primary tumor of the duodenum, making definition and dissection free of common bile duct and portal vein technically not feasible and precluding curative resection. 2. Intraoperative frozen section consistent with adenocarcinoma. 3. No evidence of metastatic disease or carcinomatosis. INDICATIONS FOR PROCEDURE: The patient is a 72-year-old female who was diagnosed with a large lexii hepatis mass after evaluation for abdominal pain. The patient underwent extensive workup including PET scan, EUS, endoscopies and biopsies. There was no tissue diagnosis of malignancy with her biopsy; however, PET scan showed suspicious mass in the lexii hepatis that was very large and concerning for malignancy. After discussion at tumor board as well as discussion with the patient and her about options, they elected to undergo surgical biopsy as well as possible resection of this mass that was highly suspicious for malignancy. Risks, benefits and alternatives were discussed with the patient and the patient agreed to undergo diagnostic laparoscopy, possible duodenal resection and possible Whipple procedure. PROCEDURE: The patient was taken to the operating room, placed in the supine position and placed under general endotracheal anesthesia. The patient's abdomen was prepped and draped in a sterile fashion and a timeout was performed. A Ivanna-type entry was used with an incision just above the umbilicus with a 15 blade scalpel. A hemostat was used to dissect through the subcutaneous tissue and the midline fascia was opened under direct visualization with the scalpel. We bluntly entered the abdominal cavity with S retractors and placed a 10 mm trocar into the abdomen without difficulty. We insufflated the abdomen and surveyed the abdomen. We placed two 5 mm ports, one in the right upper quadrant and one in the left lower quadrant under direct visualization of the laparoscope. We were able to visualize the abdomen and take pictures and there was no evidence of any metastatic disease. There is a large tumor seen in the lexii hepatis, however, visualized. There is no evidence that this was unresectable on diagnostic laparoscopy. There was really no tissue that could be easily biopsied as there was relatively normal-appearing tissue anteriorly and the mass was only visible as the mass-effect underneath the first portion of duodenum. At this point in time, I felt it was in the patient's best interest to explore the patient more thoroughly as we had not ruled out the patient being resectable as well as we now had a tissue diagnosis. We converted to a diagnostic exploratory laparotomy making an upper midline incision with the 10 blade scalpel. Bovie electrocautery was used to dissect the subcutaneous tissue and open the midline fascia. An Med extra large wound protector was placed. A Bookwalter retractor with body wall retractors were placed for better exposure. I opened the gastrocolic ligament and explored the retrogastric space. We were able to do a very limited kocherization of duodenum to better evaluate the lexii hepatis. There was found to be densely matted lymph nodes that were contiguous with mass-like thickening of the first to the second portion of the duodenum. The tumor encased the lexii hepatis 360 degrees from the foramen of [place], all of the way around to the hepatic artery. The hepatic artery was abutting this mass, but did not seem to be encased by it. The common bile duct and common hepatic duct and portal vein were unable to be visualized. This was basically encased in tumor. The gallbladder appeared to have some mild inflammatory changes, though this was not severe. The stomach was felt to be normal and there was no evidence of any obvious obstruction. At this point in time, I discussed the findings with the patient's and I did not recommend a resection as it was felt this was unresectable in its current state. I discussed the consideration of a palliative bypass and cholecystectomy to limit the risk of complications from the tumor and hopefully allow the patient to undergo further treatment such as with chemotherapy. He was in agreement with this plan and no further attempt at resection was performed. We did perform an open cholecystectomy with a dome-down technique using Bovie electrocautery and the right angle to take the gallbladder off the gallbladder fossa. The cystic artery and the cystic duct were both identified easily. We placed a clip on the cystic artery and a clip and a 2-0 silk tie on the cystic duct. This was divided with Metzenbaum scissors and passed off for permanent processing. I then performed a Jerrell-en-Y palliative bypass. We divided the small bowel 40 cm past the ligament of Treitz with a blue load on the ABIOLA 55 stapler. We mobilized some of the mesentery and brought up the distal limb with an antecolic retrogastric gastrojejunostomy. We performed this with a blue load on the ABIOLA 55 stapler and the staple defect was closed with a second blue load on a ABIOLA 55 stapler. We oversewed the staple line with 3-0 silk sutures. It is widely patent without bleeding. We then performed our jejunojejunostomy with the ABIOLA 55 stapler, 40 cm past our gastrojejunostomy. Staple defect was also closed with a second ABIOLA 55 stapler and the staple line and the crotch sutures were oversewed with 3-0 silk sutures. Again, this was widely patent with no evidence of bleeding. There was really no significant mesenteric defect at this point. The omentum was divided into two separate pedicles to facilitate the antecolic nature of our anastomosis. We placed some additional Hemoclips up towards the area of the lexii hepatis and mass, in the case the patient will need radiation in the future. NG tube was placed and found to be in good position. The abdomen was irrigated out with 2 liters of sterile saline and all suctioning was clear. We turned our attention towards closure and we closed the abdomen with #1 looped PDS suture. Closed the skin with skin cuauhtemoc and a DANNA dressing was applied. The patient was discontinued from anesthesia and taken to the PACU in stable condition. The patient tolerated the procedure well and had no apparent complications. All counts were correct and I was present and scrubbed for the entire procedure. MD GERI Mcintyre/ranjan , 03:55 PM , 04:12 PM JERI
[2018-03-09] MEDS: Sod Chloride 0.9% Inj 1,000 ML IV.CONT SCH ×3 (02:03→21:36)
[2018-03-09] MEDS: ceFAZolin 1 GM Premix Inj 1 GM/50 ML PIGGYBACK IV.SIG SCH ×2 (04:13→11:55)
[2018-03-09 06:19] LABS: Baso % (Auto) 0.4 % (0.0-2.0); Eos % (Auto) 0.3 % (0.0-4.0); Hematocrit 24.5 % (35.0-46.0); Hemoglobin 8.1 gm/dL (11.6-15.3); Lymph # (Auto) 0.6 th/mm3 (1.0-4.8); Lymph % (Auto) 7.2 % (9.0-44.0); Mean Corpuscular HGB Conc 32.9 % (32.0-36.0); Mean Corpuscular Hemoglobin 31.1 pg (27.0-34.0); Mean Corpuscular Volume 94.5 fL (80.0-100.0); Mean Platelet Volume 6.7 fL (7.0-11.0); Mono % (Auto) 11.3 % (0.0-8.0); Neut # (Auto) 6.9 th/mm3 (1.8-7.7); Neut % (Auto) 80.8 % (16.0-70.0); Platelet Count 343 th/mm3 (150-450); Red Blood Count 2.59 mil/mm3 (4.00-5.30); White Blood Count 8.5 th/mm3 (4.0-11.0)
[2018-03-09 06:41] LABS: Anion Gap 9 meq/L (5-15); Blood Urea Nitrogen 5 mg/dL (7-18); Calcium 7.7 mg/dL (8.5-10.1); Carbon Dioxide 25.2 meq/L (21.0-32.0); Chloride 107 meq/L (98-107); Glomerular Filtration Rate Greater Than 89 mL/min (>89); Glucose,Random 119 mg/dL (74-106); Potassium 3.8 meq/L (3.5-5.1); Sodium 141 meq/L (136-145)
[2018-03-09] MEDS: HYDROmorphone PCA Inj 6 MG/30 ML PCA.VIAL PCA PRN (13:49)
--- NOTE | 2018-03-09 14:34 | P.PNGS ---
Addendum entered and electronically signed by RAMON Kinney 03/09/18 15: 31: Subjective --- Alert and awake ; Son at bedside Physical Exam: Alert and awake Abd: soft; minimally tender; NGT to SUZAN Original Note: Subjective Interval history: 72 year old female POD1 ex lap; bx of lexii hepatis LN; open cholecystectomy; open Jerrell-en-Y gastrojejunostomy -Continue NGT to SUZAN -Okay for ice chips -PT; OOB as tolerated -DIESEL ENGINE ERECTOR for pain control -IVF -Consult to Dr. Iniguez Physical Exam Vital signs: Vital Signs 03/08/18 15:46 03/08/18 16:00 03/08/18 16:15 Temperature 98.3 F Pulse Rate 80 75 76 Respiratory Rate 10 L 11 L 11 L Blood Pressure 149/65 H 143/65 H 133/60 Pulse Oximetry 100 100 03/08/18 16:30 03/08/18 16:45 03/08/18 17:00 Temperature Pulse Rate 68 77 74 Respiratory Rate 12 12 12 Blood Pressure 124/58 L 129/59 L 131/62 Pulse Oximetry 100 100 100 03/08/18 17:15 03/08/18 17:30 03/08/18 18:07 Temperature 98.5 F 97.6 F Pulse Rate 68 80 Respiratory Rate 12 12 19 Blood Pressure 126/61 135/63 Pulse Oximetry 99 95 03/08/18 20:00 03/08/18 21:03 03/08/18 21:33 Temperature 98.5 F Pulse Rate 78 Respiratory Rate 18 16 16 Blood Pressure 127/60 Pulse Oximetry 93 L 03/08/18 21:43 03/09/18 00:00 03/09/18 02:56 Temperature 98.5 F Pulse Rate 77 Respiratory Rate 16 18 16 Blood Pressure 133/76 Pulse Oximetry 97 03/09/18 04:00 03/09/18 08:00 03/09/18 08:24 Temperature 99.0 F 97.6 F Pulse Rate 84 82 Respiratory Rate 18 17 Blood Pressure 142/67 H 120/66 Pulse Oximetry 95 90 L 95 03/09/18 12:00 Temperature 98.0 F Pulse Rate 69 Respiratory Rate 18 Blood Pressure 126/60 Pulse Oximetry 95 Intake & Output 03/08/18 03/09/18 03/09/18 18:59 06:59 18:59 Intake Total 3450 / 3450 1560 / 1560 250 / 250 Output Total 350 / 350 750 / 750 300 / 300 Balance 3100 / 3100 810 / 810 -50 / -50 Weight 60.1 kg 62.1 kg Intake: IV 1500 / 1500 250 / 250 NS Inj 1,000 ML @ 100 mls/hr IV 1000 / 1000 .CONT .Q10H LYNNE Rx#:[id number] Ofirmev Inj 1,000 mg In 100 ml 200 / 200 100 / 100 @ 400 mls/hr IV.SIG Q6H LYNNE Rx# :[id number] Ancef 1 GM Premix Inj 1 gm In 100 / 100 50 / 50 50 ml @ 150 mls/hr IV.SIG Q8H LYNNE Rx#:[id number] Flagyl 500 MG Inj 100 ML @ 200 200 / 200 100 / 100 mls/hr IV.SIG Q8H LYNNE Rx#: [id number] Oral 60 / 60 Anesthesia Amount 3450 / 3450 Output: Estimated Blood Loss 25 / 25 Urine Amount (Catheter) 325 / 325 750 / 750 Indwelling Urethral Catheter 325 / 325 750 / 750 Gastric Drainage 300 / 300 Left Nare Nasogastric Tube 300 / 300 Other: Weight On Admission 60.1 kg - Urinary Catheter Management Indwelling Urethral Catheter Cath placed during this visit: yes Reason for continuing: Other continuation reason Insertion date: 03/08/18 Results - Labs 03/09/18 06:03 03/09/18 06:03 Laboratory Results - last 24 hr 03/09/18 03/09/18 06:03 06:03 WBC 8.5 RBC 2.59 L Hgb 8.1 L Hct 24.5 L MCV 94.5 MCH 31.1 MCHC 32.9 RDW 15.0 Plt Count 343 MPV 6.7 L Neut % (Auto) 80.8 H Lymph % (Auto) 7.2 L [place] % (Auto) 11.3 H Eos % (Auto) 0.3 Baso % (Auto) 0.4 Neut # (Auto) 6.9 Lymph # (Auto) 0.6 L [place] # (Auto) 1.0 H Eos # (Auto) 0.0 Baso # (Auto) 0.0 WBC Differential . Differential Comment Auto diff final Sodium 141 Potassium 3.8 Chloride 107 Carbon Dioxide 25.2 Anion Gap 9 BUN 5 L Creatinine 0.59 Estimated GFR Greater than 89 Random Glucose 119 H Calcium 7.7 L Assessment and Plan - Attending Attestation The exam, history, and the medical decision-making described in the above note were completed with the assistance of the mid-level provider. I reviewed and agree with the findings presented. I attest that I had a [id number] encounter with the patient on the same day, and personally performed and documented my assessment and findings in the medical record. s/p exlap, bypass, cholecystectomy stable VS, AF await bowel function pain controlled
[2018-03-09] MEDS: Pantoprazole Inj 40 MG Vial IV.PUSH SCH (16:53)
[2018-03-09] MEDS ORDERED: Sodium Chloride 0.9% 2 ML Flush PRN IV.FLUSH (20:17)
[2018-03-09] MEDS: Sodium Chloride 0.9% 2 ML Flush BID IV.FLUSH SCH (21:36)
--- NOTE | 2018-03-10 00:01 | MB ---
cc: Homero San MD DATE: 03/09/2018 REASON FOR CONSULTATION: Unresectable adenocarcinoma of the duodenum. PATIENT PROFILE: The patient is a 72-year-old female. SOCIAL HISTORY: She is and has no children. She was born in [place]. She has lived in [place] since 2011. She stopped smoking in 2005 and previously smoked half a pack of cigarettes per day. Alcohol consists of approximately 2 beers per day. HISTORY OF PRESENT ILLNESS: The patient states that she was well until approximately 10/2017 when she developed recurrent GI bleed requiring transfusions and IV iron. She had upper endoscopy, which showed 3 ulcers in the first part of the duodenum and a biopsy revealed atypical cells suspicious for malignancy. She had a colonoscopy showing a hyperplastic polyp. She had a CAT scan of the abdomen and pelvis, which showed a 5.6 cm mass in the area of the lexii hepatis. An MRI of the abdomen showed an enhancing mass along the right lateral margin of the pancreatic head. Tumor markers were negative. She eventually had a PET scan. I do not have the results but notes from her surgeon indicate that there was no metastatic disease She continued to have GI bleeding secondary to the tumor. She was referred to Dr. Webber, who is an oncologic surgeon. On 03/08/2018 she underwent a diagnostic and staging laparoscopy which was converted to an open exploratory laparotomy. She had a biopsy of a lexii hepatis lymph node consistent with an adenocarcinoma. She underwent an open cholecystectomy and an open Jerrell-en-Y gastrojejunostomy. She was felt to have an unresectable adenocarcinoma of the duodenum with the lexii hepatis being encased 360 degrees with tumor and with matted lymph nodes contiguous with the primary duodenal tumor. Prior to er surgery, she had occasional abdominal pain, which was mild. She states she did not lose weight. The major problem was GI bleeding. PAST SURGICAL HISTORY: 1. Current surgery dated 03/08/2018- exploratory laparotomy, biopsy of lexii hepatis lymph node and open Jerrell-en-Y gastrojejunostomy and cholecystectomy for unresectable adenocarcinoma of the duodenum. 2. Patient has had an arterial stent placed in the left leg for peripheral vascular disease. PAST MEDICAL HISTORY: 1. COPD. 2. Gastroesophageal reflux disease. 3. Gastrointestinal bleeding secondary to duodenal carcinoma. 4. Hypertension. ALLERGIES PRIOR TO ADMISSION: None. MEDICATIONS: 1. Vasotec for hypertension. 2. Protonix. ALLERGIES: NONE. FAMILY HISTORY: Noncontributory. REVIEW OF SYSTEMS: Notable for chronic GI bleeding, mild upper abdominal pain and decreased hearing. PHYSICAL EXAMINATION: GENERAL: The patient is uncomfortable. She has an NG tube. VITAL SIGNS: Blood pressure is 170/70, respiratory rate 18, pulse 80, temperature 99.1. HEENT: Head is normocephalic. Sclerae and conjunctivae unremarkable. She has a NG tube. NECK: There is no adenopathy. BREASTS: Without masses. HEART: Regular rate and rhythm. LUNGS: Clear. ABDOMEN: Soft. Mild upper abdominal tenderness. EXTREMITIES: No edema. MUSCULOSKELETAL: Unremarkable. NEUROLOGIC: No weakness. 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 Her tumor is unresectable. RECOMMENDATIONS: Once she has recovered, it would be reasonable to consider chemotherapy. She would have to have an excellent response in order to become a surgical candidate. If chemotherapy is not successful, one can consider radiating the area of tumor involvement with or without the administration of concomitant chemotherapy. Her oncologist is Dr. Iniguez. He will return next week. She will need several weeks to recover and then following this, I suspect that he will offer her systemic chemotherapy in the hope of decreasing the size of the tumor. Would consider Folfox MD LAURA Mendez/thompson , 09:42 PM , 09:53 PM JERI
--- NOTE | 2018-03-10 07:55 | P.PNGS ---
Subjective Interval history: Resting in bed No issues overnight Physical Exam Vital signs: Vital Signs 03/09/18 08:00 03/09/18 08:24 03/09/18 12:00 Temperature 97.6 F 98.0 F Pulse Rate 82 69 Respiratory Rate 17 18 Blood Pressure 120/66 126/60 Pulse Oximetry 90 L 95 95 03/09/18 16:00 03/09/18 20:00 03/09/18 20:01 Temperature 97.6 F 99.1 F Pulse Rate 72 83 Respiratory Rate 17 18 Blood Pressure 149/68 H 174/74 H Pulse Oximetry 94 L 97 94 L 03/10/18 00:00 03/10/18 04:00 03/10/18 06:16 Temperature 98.5 F 101.0 F H 98.6 F Pulse Rate 91 H 92 H 88 Respiratory Rate 18 18 20 Blood Pressure 159/69 H 182/79 H 167/71 H Pulse Oximetry 97 95 96 Intake & Output 03/09/18 03/10/18 03/10/18 18:59 06:59 18:59 Intake Total 1250 / 1250 560 / 560 Output Total 900 / 900 675 / 675 Balance 350 / 350 -115 / -115 Weight 59.9 kg Intake: IV 1250 / 1250 500 / 500 NS Inj 1,000 ML @ 100 mls/hr IV 1000 / 1000 500 / 500 .CONT .Q10H [facility] Rx#:[id number] Ofirmev Inj 1,000 mg In 100 ml 100 / 100 @ 400 mls/hr IV.SIG Q6H [facility] Rx# :[id number] Ancef 1 GM Premix Inj 1 gm In 50 / 50 50 ml @ 150 mls/hr IV.SIG Q8H [facility] Rx#:[id number] Flagyl 500 MG Inj 100 ML @ 200 100 / 100 mls/hr IV.SIG Q8H [facility] Rx#: [id number] Oral 60 / 60 Output: Urine 475 / 475 Gastric Drainage 900 / 900 200 / 200 Left Nare Nasogastric Tube 900 / 900 200 / 200 Narrative: Alert and awake Abd: soft; DANNA in place NGT to LIWS with minimal drainage - Urinary Catheter Management Indwelling Urethral Catheter Cath placed during this visit: yes Reason for continuing: Hourly intake/output Insertion date: 03/08/18 Results - Labs 03/09/18 06:03 03/09/18 06:03 Assessment and Plan - Plan 72 year old female POD2 ex lap; bx of lexii hepatis LN; open cholecystectomy; open Jerrell-en-Y gastrojejunostomy -DC NGT -Start sips of clear liquids -PT; OOB as tolerated -GAS APPLIANCE MECHANIC for pain control -IVF -Consult to Dr. San--- patient known to Dr. Iniguez--will plan for outpatient follow up - Attending Attestation The exam, history, and the medical decision-making described in the above note were completed with the assistance of the mid-level provider. I reviewed and agree with the findings presented. I attest that I had a [id number] encounter with the patient on the same day, and personally performed and documented my assessment and findings in the medical record. s/p exlap, bypass and cholecystectomy stable, OOB await bowel function
[2018-03-10] MEDS: Sodium Chloride 0.9% 2 ML Flush BID IV.FLUSH SCH ×2 (08:38→22:39)
[2018-03-10] MEDS: HYDROmorphone PCA Inj 6 MG/30 ML PCA.VIAL PCA PRN (11:05)
[2018-03-10] MEDS: Pantoprazole Inj 40 MG Vial IV.PUSH SCH (15:21)
[2018-03-10] MEDS: amLODIPine 10 MG Tablet PO SCH (15:21)
[2018-03-10] MEDS: Sod Chloride 0.9% Inj 1,000 ML IV.CONT SCH ×2 (15:34→22:39)
[2018-03-10] MEDS: Famotidine 20 MG Tablet PO SCH (22:39)
[2018-03-11] MEDS: HYDROmorphone PCA Inj 6 MG/30 ML PCA.VIAL PCA PRN (03:39)
[2018-03-11] MEDS: Sod Chloride 0.9% Inj 1,000 ML IV.CONT SCH (04:39)
--- NOTE | 2018-03-11 08:14 | P.PNGS ---
Subjective Patient reports: feels better, pain is less, tolerating liquids well, flatus, no bowel movement Physical Exam Vital signs: Vital Signs 03/10/18 12:00 03/10/18 13:45 03/10/18 15:34 Temperature 97.8 F Pulse Rate 104 H 101 H Respiratory Rate 20 20 18 Blood Pressure 184/80 H 197/79 H Pulse Oximetry 94 L 96 03/10/18 16:00 03/10/18 20:00 03/11/18 00:00 Temperature 98.7 F 98.6 F Pulse Rate 88 95 H 81 Respiratory Rate 16 17 16 Blood Pressure 159/70 H 173/73 H 157/68 H Pulse Oximetry 96 97 96 03/11/18 04:23 Temperature 97.8 F Pulse Rate 72 Respiratory Rate 18 Blood Pressure 161/70 H Pulse Oximetry 96 Intake & Output 03/10/18 03/11/18 03/11/18 18:59 06:59 18:59 Intake Total 2400 / 2400 2480 / 2480 Output Total 600 / 600 800 / 800 Balance 1800 / 1800 1680 / 1680 Weight 59 kg Intake: IV 1000 / 1000 1999 / 1999 NS Inj 1,000 ML @ 100 mls/hr IV 1000 / 1000 1999 / 1999 .CONT .Q10H [facility] Rx#:[id number] Oral 1400 / 1400 480 / 480 Output: Urine 600 / 600 800 / 800 - Constitutional no acute distress - Routine Respiratory Exam Present: CTA bilaterally - Routine Cardiovascular Exam Present: RRR - Routine Abdominal Exam Present: soft, normoactive bowel sounds, distended. 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 await bowel fxn OOB DC IVF and HEAD COACH advance to soft diet can DC home if off O2 and has BM next 24h
[2018-03-11] MEDS ORDERED: HYDROmorphone PF Inj 1 MG/ML Ampul IV.PUSH PRN (08:17)
[2018-03-11] MEDS: Famotidine 20 MG Tablet PO SCH ×2 (08:30→20:35)
[2018-03-11] MEDS: amLODIPine 10 MG Tablet PO SCH (08:30)
[2018-03-11] MEDS: Sodium Chloride 0.9% 2 ML Flush BID IV.FLUSH SCH ×2 (15:23→20:42)
[2018-03-11] MEDS: Pantoprazole Inj 40 MG Vial IV.PUSH SCH (16:51)
[2018-03-12] MEDS: Famotidine 20 MG Tablet PO SCH ×3 (07:51→21:57)
[2018-03-12] MEDS: amLODIPine 10 MG Tablet PO SCH ×2 (07:52→11:48)
[2018-03-12] MEDS: Sodium Chloride 0.9% 2 ML Flush BID IV.FLUSH SCH ×3 (07:55→21:57)
--- NOTE | 2018-03-12 12:36 | P.CONIM ---
History of Present Illness Service: [facility] [place] Consult date: 03/12/18 Reason for Consult: COPD, HTN Primary Care Provider: Kendall Foy MD Chief Complaint: abdominal discomfort History of Present Illness: This is a 72yo female with past medical history COPD, hypertension, vascular disease with recent left leg stent and recent GI bleed secondary to duodenal carcinoma that required blood transfusions and IV iron, had an upper endoscopy which showed 3 ulcers in the first part of the duodenum and the biopsy revealed atypical cells suspicious for malignancy. Colonoscopy showed hyperplastic polyp. CAT scan of the abdomen and pelvis showed a 5.6 cm mass in the area of portal hepatic. MRI of the abdomen showed enhancing mass along the right lateral margin of the pancreatic head. Tumor markers were negative, PET scan shows no metastatic disease. Oncologist, and general surgery is following. 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 Patient also had a history of arterial stent placed left leg for peripheral vascular disease. Medicine team was consulted for medical management Patient seen and examined sitting on the bed, denies any pain or shortness of breath but some complaint of abdominal discomfort. Patient states that she has passed gas. Patient has a history of COPD and was using at home, Combivent, however she does not need to use here since admission. Patient denies any wheezing or cough. Patient denies any chest pain or shortness of breath, denies any fever or chills. Family in the room, stated that patient is usually healthy and no problem. This had been taking blood pressure medication amlodipine, and inhaler as needed NUrse Denies any acute concerns Review of Systems Review of Systems: all other systems reviewed are negative [facility] Medical History Medical History COPD (chronic obstructive pulmonary disease) (Acute) Cancer of duodenum (Acute) DVT (deep venous thrombosis) (Acute) GERD (gastroesophageal reflux disease) (Acute) Hypertension (Acute) Melena (Acute) Stenosis of lower extremity artery (Acute) Ulcer (Acute) Surgical History Surgical History H/O tubal ligation (Acute) History of intravascular stent placement (Acute) Social History Social History Substance History: No History of Abuse Second Hand Smoke Exposure: No Smoking Status: Former smoker Tobacco Type: Cigarettes How Often Do You Have a Drink Containing Alcohol: 4 or more times a week Recent Travel in [facility] within the Last 8 Weeks: No Recent Out of Country Travel within the Last 8 Weeks: No Medications and Allergies Allergies Allergy/AdvReac Type Severity Reaction Status Date / Time No Known Allergies Allergy Verified 03/08/18 10:25 Home Medications Medication Instructions Recorded Confirmed Type amlodipine 10 mg PO DAILY 10/10/17 03/08/18 History multivitamin 1 tab PO DAILY 10/10/17 03/08/18 History ranitidine HCl 150 mg PO HS 11/05/17 03/08/18 History aspirin 81 mg PO DAILY 03/08/18 03/08/18 History Active Medications: Active Medications Hydrocodone Bitart/Acetaminophen ([place] 5/325) 1 tab PO Q4H PRN PRN Reason: PAIN SCALE 1 TO 5 Last Admin: 03/12/18 11:53 Dose: 1 tab Al Hydroxide/Mg Hydroxide (Milk Of Daljit He) 30 ml PO Q12H PRN PRN Reason: Mild Constipation Amlodipine Besylate (Norvasc) 10 mg PO DAILY [facility] Last Admin: 03/12/18 11:48 Dose: Not Given Benzocaine (Hurricaine 20% Oral [place]) 1 spray OROPHARYNG ONCE PRN PRN Reason: SEE LABEL COMMENTS Diphenhydramine HCl (Benadryl Inj) 25 mg IV.PUSH Q6H PRN PRN Reason: ITCHING Enalaprilat (Vasotec Inj) 2.5 mg IV.PUSH Q6H PRN PRN Reason: SBP > 160 Last Admin: 03/11/18 20:43 Dose: 2.5 mg Famotidine (Pepcid) 20 mg PO BID [facility] Last Admin: 03/12/18 11:47 Dose: Not Given Hydromorphone HCl (Dilaudid Pf Inj) 0.5 mg IV.PUSH Q3H PRN PRN Reason: PAIN 3-5; IF UABLE TO TAKE PO Naloxone HCl (Narcan Inj) 0.4 mg IV.PUSH UNSCH PRN PRN Reason: SEE LABEL COMMENTS Ondansetron HCl (Zofran Inj) 4 mg IV.PUSH Q6H PRN PRN Reason: NAUSEA OR VOMITING Last Admin: 03/08/18 21:19 Dose: 4 mg Pantoprazole Sodium (Protonix Inj) 40 mg IV.PUSH Q24H [facility] Last Admin: 03/11/18 16:51 Dose: 40 mg Promethazine HCl (Phenergan) 25 mg PO Q6H PRN PRN Reason: NAUSEA OR VOMITING Promethazine HCl (Phenergan Supp) 25 mg RECTAL Q6H PRN PRN Reason: NAUSEA OR VOMITING Sodium Chloride (Ns Flush) 2 ml IV.FLUSH BID [facility] Last Admin: 03/12/18 11:48 Dose: Not Given Sodium Chloride (Ns Flush) 2 ml IV.FLUSH PRN PRN PRN Reason: FLUSH AFTER USING IV ACCESS Physical Exam Vital signs: Last Vital Signs Temp 98.7 F 03/12/18 04:00 Pulse 78 03/12/18 04:00 Resp 18 03/12/18 04:00 BP 177/80 H 03/12/18 04:00 Pulse Ox 98 03/12/18 04:00 Intake & Output 03/10/18 03/11/18 03/12/18 03/13/18 06:59 06:59 06:59 06:59 Intake Total 1810 / 1810 4880 / 4880 2280 / 2280 Output Total 1575 / 1575 1400 / 1400 1200 / 1200 Balance 235 / 235 3480 / 3480 1080 / 1080 Weight 59.9 kg 59 kg 60.2 kg Narrative: GENERAL: Well-developed, well-nourished, elderly female in no apparent distress SKIN: Warm and dry. HEAD: Atraumatic. Normocephalic. EYES: Pupils equal and round. No scleral icterus. No injection or drainage. ENT: No nasal bleeding or discharge. Mucous membranes pink and moist. NECK: Trachea midline. No JVD. CARDIOVASCULAR: Regular rate and rhythm. RESPIRATORY: No accessory muscle use. Clear but diminished to auscultation. Breath sounds equal bilaterally. GASTROINTESTINAL: Abdomen slight tenderness. Abdominal incision with cuauhtemoc clean dry and intact, no redness, no drainage noted. Mid abdominal DANNA in place MUSCULOSKELETAL: Extremities without clubbing, cyanosis, or edema. No obvious deformities. NEUROLOGICAL: Awake and alert. No obvious cranial nerve deficits. Generalized weakness moving all 4 extremities . Normal speech. PSYCHIATRIC: Appropriate mood and affect; insight and judgment normal. Results Labs CBC & Chem 7: 03/09/18 06:03 03/09/18 06:03 Assessment and Plan (1) Carcinoma of duodenum: Code(s): C17.0 - Malignant neoplasm of duodenum Status: Acute (2) Carcinoma of small intestine, including duodenum: Code(s): C17.8 - Malignant neoplasm of overlapping sites of small intestine Status: Acute Plan This is a 72yo female with past medical history COPD, hypertension, peripheral vascular disease with stent placed on the Left leg and recent GI bleed secondary to duodenal carcinoma Duodenal Carcinoma S/p palliative bypass and 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 S/p exploratory lap; biopsy of portal hepatis LN; open cholecystectomy; open Jerrell-en-Y gastrojejunostomy on 03/08/18 -Management by General surgery -Oncology consulted: Dr. San, patient known to Dr. Erickson, plan for outpatient -Oncology recommendations: Once she has recovered, it would be reasonable to consider chemotherapy. She would have to have an excellent response in order to become a surgical candidate. If chemotherapy is not successful, one can consider radiating the area of tumor involvement with or without the administration of concomitant chemotherapy.Her oncologist is Dr. Iniguez. He will return next week. She will need several weeks to recover and then following this, I suspect that he will offer her systemic chemotherapy in the hope of decreasing the size of the tumor. Would consider Folfox COPD Acute on chronic -Restart home inhalers, Combivent -Occasional wheezing -Monitor respiratory status Hypertension Blood pressure uncontrolled -Restart home medications, amlodipine 10 mg p.o. daily -Clonidine as needed for SBP greater than 160 or DBP greater than 90 -add metoprolol -Monitor blood pressure and adjust medication as needed DVT: SCDs, early ambulation
[2018-03-12] MEDS: Pantoprazole Inj 40 MG Vial IV.PUSH SCH (16:26)
[2018-03-12] MEDS: Metoprolol Tartrate 25 MG Tablet PO SCH (21:57)
[2018-03-13] MEDS: Metoprolol Tartrate 25 MG Tablet PO SCH (08:14)
[2018-03-13] MEDS: amLODIPine 10 MG Tablet PO SCH (08:14)
[2018-03-13] MEDS: Famotidine 20 MG Tablet PO SCH (08:14)
[2018-03-13] MEDS: Sodium Chloride 0.9% 2 ML Flush BID IV.FLUSH SCH (08:15)
--- NOTE | 2018-03-13 11:03 | P.PNGS ---
Subjective Patient reports: feels better, tolerating a regular diet, bowel movement, afebrile Physical Exam Vital signs: Vital Signs 03/12/18 12:43 03/12/18 16:00 03/12/18 20:00 Temperature 98.2 F 90 F L 99.3 F Pulse Rate 90 86 82 Respiratory Rate 18 18 18 Blood Pressure 163/73 H 123/70 156/68 H Pulse Oximetry 92 L 91 L 94 L 03/13/18 00:00 03/13/18 08:33 Temperature 98.8 F 98.5 F Pulse Rate 66 70 Respiratory Rate 19 18 Blood Pressure 134/77 175/72 H Pulse Oximetry 92 L 95 Intake & Output 03/12/18 03/13/18 03/13/18 18:59 06:59 18:59 Intake Total 280 / 280 50 / 50 Balance 280 / 280 50 / 50 Weight 58.8 kg Intake: Oral 280 / 280 50 / 50 Other: # Voids 3 1 - Constitutional no acute distress - Routine Abdominal Exam Present: soft, normoactive bowel sounds, surgical scars, wound. Absent: tenderness, distended, rebound, guarding, firm, rigid, organomegaly, mass, hernia, drain, ostomy - Urinary Catheter Management Indwelling Urethral Catheter Cath placed during this visit: yes Reason for continuing: Hourly intake/output Insertion date: 03/08/18 Results - Labs 03/09/18 06:03 03/09/18 06:03 Assessment and Plan - Plan 72 year old female s/p ex lap; bx of lexii hepatis LN; open cholecystectomy; open Jerrell-en-Y gastrojejunostomy -tolerating soft diet -O2 low, may need home O2 for DC -Pain ok with oral meds -appreciate hospitalist help
--- NOTE | 2018-03-13 12:48 | P.DS ---
DS: Providers Date of admission: 03/08/18 09:22 Primary care physician: Kendall Foy MD Consults: 03/09/18 08:20 HUB Only Consult Order Routine Consulting Provider: Leatha Zhang 03/09/18 13:57 Consult to Oncology Routine Consulting Provider: Homero San Reason for Consultation: duodenal cancer; call Dr. Webber for details [phone] Notified:: Office Spoke with:: Vandana Date Notified:: 03/09/18 Time Notified:: 14:03 Ordering Provider: MOE 03/12/18 10:32 Consult to Hospitalist Routine Consulting Provider: Eulalio Carl Reason for Consultation: COPD, low O2, HTN, assistance with management and discharge Notified:: Service Spoke with:: RICHIE Date Notified:: 03/12/18 Time Notified:: 10:38 Comments:: Ordering Provider: HERNESTO Anticipated date of discharge: 03/13/18 DS: Summary This is a 72yo female with past medical history COPD, hypertension, peripheral vascular disease with stent placed on the Left leg and recent GI bleed secondary to duodenal carcinoma. Pt admitted for Duodenal Carcinoma, S/p palliative bypass and 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 exploratory lap; biopsy of portal hepatis LN; open cholecystectomy; open Jerrell-en-Y gastrojejunostomy on 03/08/18. Oncology consulted: Dr. San, patient known to Dr. Erickson, plan for outpatient follow up. Oncology recommendations: Once she has recovered, it would be reasonable to consider chemotherapy. She would have to have an excellent response in order to become a surgical candidate. If chemotherapy is not successful, one can consider radiating the area of tumor involvement with or without the administration of concomitant chemotherapy.Her oncologist is Dr. Iniguez. He will return next week. She will need several weeks to recover and then following this, I suspect that he will offer her systemic chemotherapy in the hope of decreasing the size of the tumor. Would consider Folfox. Patient reported had a bowel movement today, had been getting out of bed and walking in the room without any distress. Patient is cleared by the general surgeon for discharge Also patient being managed for history of COPD,Acute on chronic, Restarted home inhalers, Combivent, and oxygen as needed for shortness of breath or O2 sat less than 90%. Patient failed walk test without oxygen, patient will be discharge on home O2. Will follow up with primary care and associate sales manager as an outpatient. Patient also had a history of Hypertension, Blood pressure uncontrolled. Restarted home medications, amlodipine 10 mg p.o. daily and added metoprolol to the blood pressure regimen. Patient is to follow-up with her primary care provider in 3 days for blood pressure management, and pulmonology follow-up. Time Spent with Patient Total time spent providing and/or coordinating discharge services: greater than 30 mins Quality: VTE Deep Vein Thrombosis/Pulmonary Embolism Present on Admission: No Exam Narrative Exam Narrative: GENERAL: Well-developed, well-nourished, elderly female in no apparent distress SKIN: Warm and dry. HEAD: Atraumatic. Normocephalic. EYES: Pupils equal and round. No scleral icterus. No injection or drainage. ENT: No nasal bleeding or discharge. Mucous membranes pink and moist. NECK: Trachea midline. No JVD. CARDIOVASCULAR: Regular rate and rhythm. RESPIRATORY: No accessory muscle use. Clear but diminished to auscultation. Breath sounds equal bilaterally. GASTROINTESTINAL: Abdomen slight tenderness. Abdominal incision with cuauhtemoc clean dry and intact, no redness, no drainage noted. Mid abdominal DANNA in place, plan to discontinue today with general surgeon MUSCULOSKELETAL: Extremities without clubbing, cyanosis, or edema. No obvious deformities. NEUROLOGICAL: Awake and alert. No obvious cranial nerve deficits. Generalized weakness moving all 4 extremities . Normal speech. PSYCHIATRIC: Appropriate mood and affect; insight and judgment n Discharge Plan Discharge Disposition Patient Disposition: 01 Discharge Home Discharge Condition Condition: Good Discharge Order Discharge Orders: Discharge Order (Routine); Ordered 03/13/18 Ordered By: Nita Husain Cuddy Discharge Details Anticipated Discharge Date: 03/13/18 Discharge Comment: Discharge after good BM and if passed Walk test and cleared with surgeon Physicians Team Primary Care Provider: Kendall Foy V Attending Provider: Doroteo Webber Other Providers: Leatha Zhang ; Homero San ; Eulalio Carl Rxs /Orders / Referrals /Forms Prescriptions: New hydrocodone-acetaminophen 5-325 mg Tablet 1 tab PO Q4H PRN (Reason: Pain Scale 1 To 5) Qty: 18 RF: 0 naloxone 4 mg/actuation spray,non-aerosol 0.4 mg Intranasal UNSCH PRN (Reason: See Label Comments) 3 Days Qty: 3 RF: 0 metoprolol tartrate 25 mg Tablet 25 mg PO BID Qty: 60 RF: 0 Continue ranitidine HCl 150 mg Tablet 150 mg PO HS RF: 0 aspirin 81 mg Tablet,Chewable 81 mg PO DAILY RF: 0 amlodipine 10 mg Tablet 10 mg PO DAILY RF: 0 multivitamin Tablet,Chewable 1 tab PO DAILY RF: 0 Ambulatory Orders / Order Sets / DME: Oxygen Tank (2 liter) (Routine) Location: Determined by Patient Ordered By: Nita Husain Cuddy Referrals: Kendall Foy MD [Primary Care Provider] - See Instructions (follow-up in 3 days ) Discharge Instructions Patient Printed Instructions: Open Cholecystectomy (DC), Using Oxygen at Home ( DC), Pancreaticoduodenectomy (DC), Staple Care (DC)
[2018-03-13] MEDS: Pantoprazole Inj 40 MG Vial IV.PUSH SCH (16:08)
== END 2018-03-13 18:30 | disposition home or self-care (01) | DRG 327 ==
LOC: HSDI 09:22 → N07 18:03
PROVIDERS: ADMIT Surgery; ATTEND Surgery
DX: Z53.31 Laparoscopic surgical procedure converted to open procedure; J44.9 Chronic obstructive pulmonary disease, unspecified; K21.9 Gastro-esophageal reflux disease without esophagitis; I10 Essential (primary) hypertension; C77.2 Secondary and unspecified malignant neoplasm of intra-abdominal lymph nodes; K26.9 Duodenal ulcer, unspecified as acute or chronic, without hemorrhage or perforation; Z87.891 Personal history of nicotine dependence; Z95.820 Peripheral vascular angioplasty status with implants and grafts; C17.8 Malignant neoplasm of overlapping sites of small intestine; Z79.899 Other long term (current) drug therapy; I73.9 Peripheral vascular disease, unspecified; Z86.718 Personal history of other venous thrombosis and embolism; Z98.51 Tubal ligation status; Z87.19 Personal history of other diseases of the digestive system; Z79.82 Long term (current) use of aspirin; C17.0 Malignant neoplasm of duodenum
CPT/HCPCS: 80048; 85025; 86850; 86900; 86901; 86923; 88304; 88305; 88331; 93005; 94150; 94618; 94620; 97110; 97116; 97162; C1765; C9113; C9290; J0131; J0690; J1170; J1940; J2250; J2270; J2405; J3010; J7030; J7120

== ENCOUNTER 2018-03-22 13:42 | Observation (INO) ==
[2018-03-22 16:52] LABS: Bilirubin,Urine Negative (Negative); Clarity,Urine Clear (Clear); Glucose,Urine (UA) Negative (Negative); Leukocyte Esterase,Urine Negative (Negative); Nitrite,Urine Negative (Negative); Urobilinogen,Urine 0.2 mg/dL (Less than 2)
--- NOTE | 2018-03-22 16:54 | XR ---
EXAM DATE: 03/22/2018 4:42 PM EST AGE/SEX: 72 years / Female INDICATIONS: Weakness. Post op stomach surgery 3 weeks ago. CLINICAL DATA: This is the patient's initial encounter. Patient reports that signs and symptoms have been present for 2 weeks and indicates a pain score of 0/10. MEDICAL/SURGICAL HISTORY: Chronic obstructive pulmonary disease. Stomach cancer. . Partial st omach removed. COMPARISON: [facility] [place], CHEST 2V PA&LAT, 10/10/2017. . FINDINGS: The lungs are clear without infiltrate, nodule, or mass. There is no appreciable pleural effusion for technique. Heart and mediastinum are unremarkable. CONCLUSION: No acute cardiopulmonary disease. Electronically signed by: Cecil Quiros MD Board Certified Radiologist 03/22/2018 4:52 PM EST
[2018-03-22 16:58] LABS: Baso # (Auto) 0.1 th/mm3 (0.0-0.2); Baso % (Auto) 1.3 % (0.0-2.0); Eos # (Auto) 0.3 th/mm3 (0.0-0.4); Eos % (Auto) 3.1 % (0.0-4.0); Hematocrit 28.3 % (35.0-46.0); Lymph # (Auto) 1.4 th/mm3 (1.0-4.8); Lymph % (Auto) 15.1 % (9.0-44.0); Mean Corpuscular HGB Conc 31.9 % (32.0-36.0); Mean Corpuscular Hemoglobin 28.6 pg (27.0-34.0); Mean Corpuscular Volume 89.7 fL (80.0-100.0); Mean Platelet Volume 7.3 fL (7.0-11.0); Mono % (Auto) 10.7 % (0.0-8.0); Neut # (Auto) 6.3 th/mm3 (1.8-7.7); Neut % (Auto) 69.8 % (16.0-70.0); Platelet Count 639 th/mm3 (150-450); Red Blood Count 3.16 mil/mm3 (4.00-5.30); Red Cell Distribution Width 16.5 % (11.6-17.2); White Blood Count 9.1 th/mm3 (4.0-11.0)
[2018-03-22 16:59] LABS: Color,Urine Straw (Yellw/Straw)
[2018-03-22 17:01] LABS: Amorphous Sediment,Urine Rare /hpf; Chloride 104 meq/L (98-107); Hyaline Casts,Urine 0-3 /lpf (0-3); Potassium 3.9 meq/L (3.5-5.1); Sodium 137 meq/L (136-145); Squamous Epithelial Cell,Urine 0-5 /hpf (0-5); WBC,Urine 0-5 /hpf (0-5)
[2018-03-22 17:02] LABS: Mucus,Urine Few /lpf (Occasional)
[2018-03-22 17:05] LABS: Albumin 3.1 g/dL (3.4-5.0); Anion Gap 10 meq/L (5-15); Blood Urea Nitrogen 10 mg/dL (7-18); Calcium 8.9 mg/dL (8.5-10.1); Carbon Dioxide 23.5 meq/L (21.0-32.0); Glucose,Random 109 mg/dL (74-106); Lipase 374 U/L (73-393)
[2018-03-22 17:08] LABS: Alanine Aminotransferase 15 U/L (10-53); Aspartate Aminotransferase 21 U/L (15-37); Glomerular Filtration Rate 76 mL/min (>89)
[2018-03-22 17:10] LABS: Total Protein 7.4 g/dL (6.4-8.2)
[2018-03-22 17:11] LABS: Alkaline Phosphatase 83 U/L (45-117)
[2018-03-22 17:20] LABS: Creatine Kinase 49 U/L (26-192)
[2018-03-22 17:28] LABS: Eosinophils 3 % (0-4); Lymphocytes 10 % (9-44); Monocytes 11 % (0-8)
[2018-03-22 17:29] LABS: Platelet Morphology Normal (Normal)
--- NOTE | 2018-03-22 18:17 | ED ---
HPI General Chief complaint: Weakness Stated complaint: weakness/nausea/surgery on 03-08-18 Time Seen by Provider: 03/22/18 16:19 History of Present Illness HPI narrative: 72 female here for evaluation of generalized weakness. 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 She has history of chronic anemia and required multiple transfusions. She is here today because feeling weak and lethargic over the last few weeks, she says that she used to take iron pills but she stopped because it used to give her black stool. She is lightheaded every time she walks or gets up from bed, denies any headache or blurry vision, she has no motor or sensory loss. She has no chest pain or shortness of breath. No palpitations or sweating or any other complaints. Related Data Home Medications Medication Instructions Recorded Confirmed amlodipine 10 mg PO DAILY 10/10/17 03/22/18 multivitamin 1 tab PO DAILY 10/10/17 03/22/18 Previous Rx's Medication Instructions Recorded hydrocodone-acetaminophen 1 tab PO Q4H PRN #18 tab 03/13/18 metoprolol tartrate 25 mg PO BID #60 tab 03/13/18 pantoprazole [Protonix] 40 mg PO DAILY #44 each 03/24/18 Allergies Allergy/AdvReac Type Severity Reaction Status Date / Time No Known Allergies Allergy Verified 03/22/18 13:55 Review of Systems ROS: all other systems reviewed are negative [facility] Medical History Medical History COPD (chronic obstructive pulmonary disease) (Acute) Cancer of duodenum (Acute) DVT (deep venous thrombosis) (Acute) GERD (gastroesophageal reflux disease) (Acute) Hypertension (Acute) Melena (Acute) Stenosis of lower extremity artery (Acute) Ulcer (Acute) Social History Social History Substance History: No History of Abuse Second Hand Smoke Exposure: No Smoking Status: Former smoker Tobacco Type: Cigarettes How Often Do You Have a Drink Containing Alcohol: 2 to 4 times a month Recent Travel in [facility] within the Last 8 Weeks: No Recent Out of Country Travel within the Last 8 Weeks: No Immunization History Tetanus Immunization: Unsure Exam Narrative Exam Narrative: GENERAL: Alert oriented x3 no acute distress. SKIN: Focused skin assessment warm/dry. HEAD: Atraumatic. Normocephalic. EYES: Pupils equal and round. No scleral icterus. No injection or drainage. ENT: No nasal bleeding or discharge. Mucous membranes pink and moist. NECK: Trachea midline. No JVD. CARDIOVASCULAR: Regular rate and rhythm. No murmur appreciated. RESPIRATORY: No accessory muscle use. Clear to auscultation. Breath sounds equal bilaterally. GASTROINTESTINAL: Abdomen soft, non-tender, nondistended. Hepatic and splenic margins not palpable. MUSCULOSKELETAL: No obvious deformities. No clubbing. No cyanosis. No edema. NEUROLOGICAL: Awake and alert. No obvious cranial nerve deficits. Motor grossly within normal limits. Normal speech. PSYCHIATRIC: Appropriate mood and affect; insight and judgment normal. Procedures Hemaprompt Stool Procedural Steps Taken: specimen placed in appropriate test area Hemaprompt Stool Result: positive Course Initial Documented Vital Signs Temperature 98.5 F 03/22/18 13:50 Pulse Rate 88 03/22/18 13:50 Respiratory Rate 16 03/22/18 13:50 Blood Pressure 148/68 H 03/22/18 13:50 Pulse Oximetry 99 03/22/18 13:50 Last Documented Vital Signs Temperature 97.8 F 03/24/18 08:00 Pulse Rate 86 03/24/18 08:00 Respiratory Rate 18 03/24/18 09:40 Blood Pressure 118/56 L 03/24/18 08:00 Pulse Oximetry 98 03/24/18 08:00 Medical Decision Making MDM Narrative Medical decision making narrative: 72 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 She had surgery done back on 03/08. She is here because of generalized weakness and lightheadedness. Her hemoglobin is 9, she was mildly tachycardic here in the ER, rest of her blood work is unremarkable. She has no abdominal pain. Surgical scar is clean. She is afebrile at home and here in the ER. Hemoccult is positive and there is a concern for GI bleed. Given her surgical history and a positive Hemoccult patient will benefit from admission for surgical evaluation. Medical Screen Exam Complete: Yes Emergency Medical Condition: Yes Lab Data Result diagrams: 03/24/18 10:56 03/23/18 05:40 Lab Results 03/22/18 03/22/18 03/22/18 Range/Units 16:20 16:20 16:20 CBC w Diff Slide review pending WBC 9.1 (4.0-11.0) th/mm3 RBC 3.16 L (4.00-5.30) mil/mm3 Hgb 9.0 L (11.6-15.3) gm/dL Hct 28.3 L (35.0-46.0) % MCV 89.7 (80.0-100.0) fL MCH 28.6 (27.0-34.0) pg MCHC 31.9 L (32.0-36.0) % RDW 16.5 (11.6-17.2) % Plt Count 639 H D (150-450) th/mm3 MPV 7.3 (7.0-11.0) fL Neut % (Auto) 69.8 (16.0-70.0) % Lymph % (Auto) 15.1 (9.0-44.0) % [place] % (Auto) 10.7 H (0.0-8.0) % Eos % (Auto) 3.1 (0.0-4.0) % Baso % (Auto) 1.3 (0.0-2.0) % Neut # (Auto) 6.3 (1.8-7.7) th/mm3 Lymph # (Auto) 1.4 (1.0-4.8) th/mm3 [place] # (Auto) 1.0 H (0.0-0.9) th/mm3 Eos # (Auto) 0.3 (0.0-0.4) th/mm3 Baso # (Auto) 0.1 (0.0-0.2) th/mm3 WBC Differential Manual diff final Seg Neuts % (Manual) 68 (16-70) % Band Neuts % (Manual) 5 (0-6) % Lymphocytes % (Manual) 10 (9-44) % Monocytes % (Manual) 11 H (0-8) % Eosinophils % (Manual) 3 (0-4) % Basophils % (Manual) 3 H (0-2) % Abs Neuts (Manual) 6.6 (1.8-7.7) th/mm3 Differential Comment . Platelet Estimate High H (Normal) Platelet Morphology Normal (Normal) Sodium (136-145) meq/L Potassium (3.5-5.1) meq/L Chloride (98-107) meq/L Carbon Dioxide (21.0-32.0) meq/L Anion Gap (5-15) meq/L BUN (7-18) mg/dL Creatinine (0.50-1.00) mg/dL Estimated GFR (>89) mL/min Random Glucose (74-106) mg/dL Calcium (8.5-10.1) mg/dL Total Bilirubin (0.2-1.0) mg/dL AST (15-37) U/L ALT (10-53) U/L Alkaline Phosphatase (45-117) U/L Total Creatine Kinase (26-192) U/L Troponin I (0.02-0.05) ng/mL B-Natriuretic Peptide 30 (0-100) pg/mL Total Protein (6.4-8.2) g/dL Albumin (3.4-5.0) g/dL Lipase Cancelled Urine Color (Yellw/Straw) Urine Clarity (Clear) Urine pH (5.0-8.5) Ur Specific [place] (1.002-1.035) Urine Protein (Neg-Trace) mg/dL Urine Glucose (UA) (Negative) mg/dL Urine Ketones (Negative) mg/dL Urine Occult Blood (Negative) Urine Nitrate (Negative) Urine Bilirubin (Negative) Urine Urobilinogen (Less than 2) mg/dL Ur Leukocyte Esterase (Negative) Urine WBC (0-5) /hpf Ur Squamous Epith Cells (0-5) /hpf Amorphous Sediment (None) /hpf Hyaline Casts (0-3) /lpf Urine Mucus (Occasional) /lpf Micro UA Comment Ur Microscopic Review Urine Culture Comments 03/22/18 03/22/18 03/23/18 Range/Units 16:20 16:20 00:34 CBC w Diff WBC (4.0-11.0) th/mm3 RBC (4.00-5.30) mil/mm3 Hgb 8.1 L (11.6-15.3) gm/dL Hct 25.9 L (35.0-46.0) % MCV (80.0-100.0) fL MCH (27.0-34.0) pg MCHC (32.0-36.0) % RDW (11.6-17.2) % Plt Count (150-450) th/mm3 MPV (7.0-11.0) fL Neut % (Auto) (16.0-70.0) % Lymph % (Auto) (9.0-44.0) % [place] % (Auto) (0.0-8.0) % Eos % (Auto) (0.0-4.0) % Baso % (Auto) (0.0-2.0) % Neut # (Auto) (1.8-7.7) th/mm3 Lymph # (Auto) (1.0-4.8) th/mm3 [place] # (Auto) (0.0-0.9) th/mm3 Eos # (Auto) (0.0-0.4) th/mm3 Baso # (Auto) (0.0-0.2) th/mm3 WBC Differential Seg Neuts % (Manual) (16-70) % Band Neuts % (Manual) (0-6) % Lymphocytes % (Manual) (9-44) % Monocytes % (Manual) (0-8) % Eosinophils % (Manual) (0-4) % Basophils % (Manual) (0-2) % Abs Neuts (Manual) (1.8-7.7) th/mm3 Differential Comment Platelet Estimate (Normal) Platelet Morphology (Normal) Sodium 137 (136-145) meq/L Potassium 3.9 (3.5-5.1) meq/L Chloride 104 (98-107) meq/L Carbon Dioxide 23.5 (21.0-32.0) meq/L Anion Gap 10 (5-15) meq/L BUN 10 (7-18) mg/dL Creatinine 0.75 (0.50-1.00) mg/dL Estimated GFR 76 L (>89) mL/min Random Glucose 109 H (74-106) mg/dL Calcium 8.9 (8.5-10.1) mg/dL Total Bilirubin Less than 0.1 L (0.2-1.0) mg/dL AST 21 (15-37) U/L ALT 15 (10-53) U/L Alkaline Phosphatase 83 (45-117) U/L Total Creatine Kinase 49 (26-192) U/L Troponin I Less than 0.02 L (0.02-0.05) ng/mL B-Natriuretic Peptide (0-100) pg/mL Total Protein 7.4 (6.4-8.2) g/dL Albumin 3.1 L (3.4-5.0) g/dL Lipase 374 Urine Color Straw (Yellw/Straw) Urine Clarity Clear (Clear) Urine pH 6.0 (5.0-8.5) Ur Specific [place] 1.010 (1.002-1.035) Urine Protein Negative (Neg-Trace) mg/dL Urine Glucose (UA) Negative (Negative) mg/dL Urine Ketones Negative (Negative) mg/dL Urine Occult Blood Negative (Negative) Urine Nitrate Negative (Negative) Urine Bilirubin Negative (Negative) Urine Urobilinogen 0.2 (Less than 2) mg/dL Ur Leukocyte Esterase Negative (Negative) Urine WBC 0-5 (0-5) /hpf Ur Squamous Epith Cells 0-5 (0-5) /hpf Amorphous Sediment Rare H (None) /hpf Hyaline Casts 0-3 (0-3) /lpf Urine Mucus Few H (Occasional) /lpf Micro UA Comment Culture not ind Ur Microscopic Review Microscopic reviewed Urine Culture Comments Culture not ind 03/23/18 03/23/18 03/24/18 Range/Units 05:40 05:40 10:56 CBC w Diff Auto diff final WBC 6.2 (4.0-11.0) th/mm3 RBC 2.83 L (4.00-5.30) mil/mm3 Hgb 7.7 L 8.4 L (11.6-15.3) gm/dL Hct 24.7 L 26.1 L (35.0-46.0) % MCV 87.3 (80.0-100.0) fL MCH 27.2 (27.0-34.0) pg MCHC 31.1 L (32.0-36.0) % RDW 15.9 (11.6-17.2) % Plt Count 550 H (150-450) th/mm3 MPV 7.2 (7.0-11.0) fL Neut % (Auto) 64.6 (16.0-70.0) % Lymph % (Auto) 15.6 (9.0-44.0) % [place] % (Auto) 13.8 H (0.0-8.0) % Eos % (Auto) 5.3 H (0.0-4.0) % Baso % (Auto) 0.7 (0.0-2.0) % Neut # (Auto) 4.0 (1.8-7.7) th/mm3 Lymph # (Auto) 1.0 (1.0-4.8) th/mm3 [place] # (Auto) 0.9 (0.0-0.9) th/mm3 Eos # (Auto) 0.3 (0.0-0.4) th/mm3 Baso # (Auto) 0.0 (0.0-0.2) th/mm3 WBC Differential . Seg Neuts % (Manual) (16-70) % Band Neuts % (Manual) (0-6) % Lymphocytes % (Manual) (9-44) % Monocytes % (Manual) (0-8) % Eosinophils % (Manual) (0-4) % Basophils % (Manual) (0-2) % Abs Neuts (Manual) (1.8-7.7) th/mm3 Differential Comment . Platelet Estimate (Normal) Platelet Morphology (Normal) Sodium 141 (136-145) meq/L Potassium 3.5 (3.5-5.1) meq/L Chloride 108 H (98-107) meq/L Carbon Dioxide 24.8 (21.0-32.0) meq/L Anion Gap 8 (5-15) meq/L BUN 7 (7-18) mg/dL Creatinine 0.52 (0.50-1.00) mg/dL Estimated GFR Greater than 89 (>89) mL/min Random Glucose 98 (74-106) mg/dL Calcium 8.6 (8.5-10.1) mg/dL Total Bilirubin 0.3 (0.2-1.0) mg/dL AST 15 (15-37) U/L ALT 12 (10-53) U/L Alkaline Phosphatase 70 (45-117) U/L Total Creatine Kinase (26-192) U/L Troponin I (0.02-0.05) ng/mL B-Natriuretic Peptide (0-100) pg/mL Total Protein 6.4 D (6.4-8.2) g/dL Albumin 2.7 L (3.4-5.0) g/dL Lipase Urine Color (Yellw/Straw) Urine Clarity (Clear) Urine pH (5.0-8.5) Ur Specific [place] (1.002-1.035) Urine Protein (Neg-Trace) mg/dL Urine Glucose (UA) (Negative) mg/dL Urine Ketones (Negative) mg/dL Urine Occult Blood (Negative) Urine Nitrate (Negative) Urine Bilirubin (Negative) Urine Urobilinogen (Less than 2) mg/dL Ur Leukocyte Esterase (Negative) Urine WBC (0-5) /hpf Ur Squamous Epith Cells (0-5) /hpf Amorphous Sediment (None) /hpf Hyaline Casts (0-3) /lpf Urine Mucus (Occasional) /lpf Micro UA Comment Ur Microscopic Review Urine Culture Comments Imaging Data Radiologist's impression: Chest X-Ray 03/22/18 16:29 CONCLUSION: No acute cardiopulmonary disease. Discharge Plan Discharge Disposition Patient Disposition: ED Admit(ED Internal Use Only) Discharge Condition Condition: Good Discharge Order Discharge Orders: Discharge Order (Routine); Ordered 03/24/18 Ordered By: Yelena Macias ED Use Only Admit Order (Routine); Ordered 03/22/18 Ordered By: Rober Jordan Discharge Details Anticipated Discharge Date: 03/24/18 Diagnosis: Generalized weakness, Acute GI bleeding Physicians Team ED Provider: Rober Jordan Primary Care Provider: Kendall Foy V Attending Provider: Yelena Macias Other Providers: Tashia Arce ; Elio Jin ; Todd Iniguez ; [employer] Status ED Status: Left Department Discharge Information Discharge Date/Time: 03/23/18 01:05
[2018-03-22] MEDS ORDERED: Acetaminophen 325 MG Tablet PO PRN (18:33)
[2018-03-22] MEDS ORDERED: Bisacodyl 10 MG Supp RECTAL PRN (18:33)
[2018-03-22] MEDS ORDERED: Pantoprazole Inj 40 MG Vial IV.PUSH ONE (18:35)
[2018-03-22] MEDS: Sod Chloride 0.9% Inj 1,000 ML IV.CONT SCH (18:42)
[2018-03-23 00:43] LABS: Hematocrit 25.9 % (35.0-46.0); Hemoglobin 8.1 gm/dL (11.6-15.3)
[2018-03-23 06:41] LABS: Baso % (Auto) 0.7 % (0.0-2.0); Eos # (Auto) 0.3 th/mm3 (0.0-0.4); Eos % (Auto) 5.3 % (0.0-4.0); Hematocrit 24.7 % (35.0-46.0); Hemoglobin 7.7 gm/dL (11.6-15.3); Lymph % (Auto) 15.6 % (9.0-44.0); Mean Corpuscular HGB Conc 31.1 % (32.0-36.0); Mean Corpuscular Hemoglobin 27.2 pg (27.0-34.0); Mean Corpuscular Volume 87.3 fL (80.0-100.0); Mean Platelet Volume 7.2 fL (7.0-11.0); Mono # (Auto) 0.9 th/mm3 (0.0-0.9); Mono % (Auto) 13.8 % (0.0-8.0); Neut % (Auto) 64.6 % (16.0-70.0); Platelet Count 550 th/mm3 (150-450); Red Blood Count 2.83 mil/mm3 (4.00-5.30); Red Cell Distribution Width 15.9 % (11.6-17.2); White Blood Count 6.2 th/mm3 (4.0-11.0)
[2018-03-23 06:52] LABS: Chloride 108 meq/L (98-107); Potassium 3.5 meq/L (3.5-5.1); Sodium 141 meq/L (136-145)
[2018-03-23 06:58] LABS: Albumin 2.7 g/dL (3.4-5.0); Anion Gap 8 meq/L (5-15); Blood Urea Nitrogen 7 mg/dL (7-18); Calcium 8.6 mg/dL (8.5-10.1); Carbon Dioxide 24.8 meq/L (21.0-32.0); Glucose,Random 98 mg/dL (74-106)
[2018-03-23 07:00] LABS: Alanine Aminotransferase 12 U/L (10-53)
[2018-03-23 07:01] LABS: Aspartate Aminotransferase 15 U/L (15-37); Glomerular Filtration Rate Greater Than 89 mL/min (>89)
[2018-03-23 07:02] LABS: Total Protein 6.4 g/dL (6.4-8.2)
[2018-03-23 07:03] LABS: Alkaline Phosphatase 70 U/L (45-117)
--- NOTE | 2018-03-23 07:03 | P.CONGS ---
[facility] Gen Surgery Consult Note Consult date: 03/23/18 Reason for consult: other (anemia; with duodenal mass) Requesting physician: Sena Landis Narrative: This is a 72 year old female known to our service. 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 The patient did well postoperatively and was discharged home. She had a follow up visit in the office on March 20 and was doing well. Her cuauhtemoc were removed and Steri Strips were placed. She came to the ED yesterday with complaints of weakness. She states every time she stands up she is dizzy and weak. She reports a good appetite and that her bowels are working like normal. On admission, her hemoglobin was 9.0. The patient's Oncologist is Dr. Iniguez. A General Surgery consultation has been requested. Review of Systems All other systems reviewed negative except as stated in [facility] - History History Provided By: Patient, Family Member - Medical History Medical History: Medical History (Last Reviewed 03/23/18 @ 17:14 by RAMON Kinney) COPD (chronic obstructive pulmonary disease) (Acute) Cancer of duodenum DVT (deep venous thrombosis) GERD (gastroesophageal reflux disease) Hypertension Melena Stenosis of lower extremity artery Ulcer - Surgical History Surgical History: Surgical History (Last Reviewed 03/23/18 @ 17:14 by RAMON Kinney) History of cholecystectomy H/O tubal ligation History of intravascular stent placement - Tobacco History Second Hand Smoke Exposure: No Smoking Status: Former smoker Tobacco Type: Cigarettes - Alcohol History How Often Do You Have a Drink Containing Alcohol: 2 to 4 times a month - Substance Use History Substance History: No History of Abuse - Travel History Recent Travel in the [place] Within the Last 8 Weeks: No Recent Travel Out of the Country Within the Last 8 Weeks: No - Immunization History Tetanus Immunization: Unsure Medications and Allergies Allergies Allergy/AdvReac Type Severity Reaction Status Date / Time No Known Allergies Allergy Verified 03/22/18 13:55 Home Medications Medication Instructions Recorded Confirmed Type amlodipine 10 mg PO DAILY 10/10/17 03/22/18 History multivitamin 1 tab PO DAILY 10/10/17 03/22/18 History ranitidine HCl 150 mg PO HS 11/05/17 03/22/18 History aspirin 81 mg PO DAILY 03/08/18 03/22/18 History Active Medications: Active Medications Acetaminophen (Tylenol) 650 mg PO Q4H PRN PRN Reason: Temp > 100.4 Last Admin: 03/22/18 23:35 Dose: 650 mg Al Hydroxide/Mg Hydroxide (Milk Of Magnesia Liq) 30 ml PO Q12H PRN PRN Reason: Mild Constipation Bisacodyl (Dulcolax Supp) 10 mg RECTAL DAILY PRN PRN Reason: SEVERE CONSITIPATION Sodium Chloride (Ns Inj) 1,000 mls @ 100 mls/hr IV.CONT .Q10H [facility] Last Infusion: 03/23/18 00:18 Dose: 100 mls/hr Lactulose (Lactulose Liq) 30 ml PO DAILY PRN PRN Reason: SEVERE CONSITIPATION Ondansetron HCl (Zofran Inj) 4 mg IV.PUSH Q6H PRN PRN Reason: NAUSEA OR VOMITING Pantoprazole Sodium (Protonix Inj) 40 mg IV.PUSH Q24H [facility] Sennosides (Senokot) 17.2 mg PO Q12H PRN PRN Reason: Moderate Constipation Sodium Chloride (Ns Flush) 2 ml IV.FLUSH PRN PRN PRN Reason: FLUSH AFTER USING IV ACCESS Last Admin: 03/22/18 18:42 Dose: 2 ml Sodium Chloride (Ns Flush) 2 ml IV.FLUSH BID [facility] Last Admin: 03/22/18 21:30 Dose: 2 ml Exam Vital signs: Vital Signs 03/22/18 13:50 03/22/18 16:41 03/22/18 18:06 Temperature 98.5 F Pulse Rate 88 91 H 88 Respiratory Rate 16 18 18 Blood Pressure 148/68 H 169/71 H 164/64 H Pulse Oximetry 99 97 97 03/22/18 19:44 03/23/18 00:10 03/23/18 00:30 Temperature Pulse Rate 84 79 Respiratory Rate 20 Blood Pressure 171/74 H Pulse Oximetry 03/23/18 01:05 03/23/18 04:00 Temperature 96.9 F L 97.2 F L Pulse Rate 79 78 Respiratory Rate 20 20 Blood Pressure 150/68 H 146/67 H Pulse Oximetry 96 95 Intake & Output 03/22/18 03/23/18 03/23/18 18:59 06:59 18:59 Intake Total 440 / 440 Balance 440 / 440 Weight 60 kg 59.8 kg Intake: IV 440 / 440 NS Inj 1,000 ML @ 100 mls/hr IV 440 / 440 .CONT .Q10H [facility] Rx#:[id number] Oral 0 / 0 Other: # Voids 1 # Bowel Movements 1 Narrative: GENERAL: 72 year old female resting in bed in no acute distress. SKIN: Warm and dry. HEAD: Atraumatic. Normocephalic. EYES: Pupils equal and round. No scleral icterus. No injection or drainage. ENT: No nasal bleeding or discharge. Mucous membranes pink and moist. NECK: Trachea midline. CARDIOVASCULAR: Regular rate and rhythm. RESPIRATORY: No accessory muscle use. Clear to auscultation. Breath sounds equal bilaterally. GASTROINTESTINAL: Abdomen soft, non-tender, nondistended. Her midline incision is healing; there are Steri-Strips in place. MUSCULOSKELETAL: Extremities without clubbing, cyanosis, or edema. No obvious deformities. NEUROLOGICAL: Awake and alert. No obvious cranial nerve deficits. Motor grossly within normal limits. Five out of 5 muscle strength in the arms and legs. Normal speech. PSYCHIATRIC: Appropriate mood and affect; insight and judgment normal. Results - Labs 03/24/18 10:56 03/23/18 05:40 Laboratory Results - last 24 hr 03/22/18 03/22/18 03/22/18 16:20 16:20 16:20 CBC w Diff Slide review pending WBC 9.1 RBC 3.16 L Hgb 9.0 L Hct 28.3 L MCV 89.7 MCH 28.6 MCHC 31.9 L RDW 16.5 Plt Count 639 H D MPV 7.3 Neut % (Auto) 69.8 Lymph % (Auto) 15.1 [place] % (Auto) 10.7 H Eos % (Auto) 3.1 Baso % (Auto) 1.3 Neut # (Auto) 6.3 Lymph # (Auto) 1.4 [place] # (Auto) 1.0 H Eos # (Auto) 0.3 Baso # (Auto) 0.1 WBC Differential Manual diff final Seg Neuts % (Manual) 68 Band Neuts % (Manual) 5 Lymphocytes % (Manual) 10 Monocytes % (Manual) 11 H Eosinophils % (Manual) 3 Basophils % (Manual) 3 H Abs Neuts (Manual) 6.6 Differential Comment . Platelet Estimate High H Platelet Morphology Normal Sodium Potassium Chloride Carbon Dioxide Anion Gap BUN Creatinine Estimated GFR Random Glucose Calcium Total Bilirubin AST ALT Alkaline Phosphatase Total Creatine Kinase Troponin I B-Natriuretic Peptide 30 Total Protein Albumin Lipase Cancelled Urine Color Urine Clarity Urine pH Ur Specific [place] Urine Protein Urine Glucose (UA) Urine Ketones Urine Occult Blood Urine Nitrate Urine Bilirubin Urine Urobilinogen Ur Leukocyte Esterase Urine WBC Ur Squamous Epith Cells Amorphous Sediment Hyaline Casts Urine Mucus Micro UA Comment Ur Microscopic Review Urine Culture Comments 03/22/18 03/22/18 03/23/18 16:20 16:20 00:34 CBC w Diff WBC RBC Hgb 8.1 L Hct 25.9 L MCV MCH MCHC RDW Plt Count MPV Neut % (Auto) Lymph % (Auto) [place] % (Auto) Eos % (Auto) Baso % (Auto) Neut # (Auto) Lymph # (Auto) [place] # (Auto) Eos # (Auto) Baso # (Auto) WBC Differential Seg Neuts % (Manual) Band Neuts % (Manual) Lymphocytes % (Manual) Monocytes % (Manual) Eosinophils % (Manual) Basophils % (Manual) Abs Neuts (Manual) Differential Comment Platelet Estimate Platelet Morphology Sodium 137 Potassium 3.9 Chloride 104 Carbon Dioxide 23.5 Anion Gap 10 BUN 10 Creatinine 0.75 Estimated GFR 76 L Random Glucose 109 H Calcium 8.9 Total Bilirubin Less than 0.1 L AST 21 ALT 15 Alkaline Phosphatase 83 Total Creatine Kinase 49 Troponin I Less than 0.02 L B-Natriuretic Peptide Total Protein 7.4 Albumin 3.1 L Lipase 374 Urine Color Straw Urine Clarity Clear Urine pH 6.0 Ur Specific [place] 1.010 Urine Protein Negative Urine Glucose (UA) Negative Urine Ketones Negative Urine Occult Blood Negative Urine Nitrate Negative Urine Bilirubin Negative Urine Urobilinogen 0.2 Ur Leukocyte Esterase Negative Urine WBC 0-5 Ur Squamous Epith Cells 0-5 Amorphous Sediment Rare H Hyaline Casts 0-3 Urine Mucus Few H Micro UA Comment Culture not ind Ur Microscopic Review Microscopic reviewed Urine Culture Comments Culture not ind 03/23/18 03/23/18 05:40 05:40 CBC w Diff Auto diff final WBC 6.2 RBC 2.83 L Hgb 7.7 L Hct 24.7 L MCV 87.3 MCH 27.2 MCHC 31.1 L RDW 15.9 Plt Count 550 H MPV 7.2 Neut % (Auto) 64.6 Lymph % (Auto) 15.6 [place] % (Auto) 13.8 H Eos % (Auto) 5.3 H Baso % (Auto) 0.7 Neut # (Auto) 4.0 Lymph # (Auto) 1.0 [place] # (Auto) 0.9 Eos # (Auto) 0.3 Baso # (Auto) 0.0 WBC Differential . Seg Neuts % (Manual) Band Neuts % (Manual) Lymphocytes % (Manual) Monocytes % (Manual) Eosinophils % (Manual) Basophils % (Manual) Abs Neuts (Manual) Differential Comment . Platelet Estimate Platelet Morphology Sodium 141 Potassium 3.5 Chloride 108 H Carbon Dioxide 24.8 Anion Gap 8 BUN 7 Creatinine 0.52 Estimated GFR Greater than 89 Random Glucose 98 Calcium 8.6 Total Bilirubin 0.3 AST 15 ALT 12 Alkaline Phosphatase Total Creatine Kinase Troponin I B-Natriuretic Peptide Total Protein 6.4 D Albumin 2.7 L Lipase Urine Color Urine Clarity Urine pH Ur Specific [place] Urine Protein Urine Glucose (UA) Urine Ketones Urine Occult Blood Urine Nitrate Urine Bilirubin Urine Urobilinogen Ur Leukocyte Esterase Urine WBC Ur Squamous Epith Cells Amorphous Sediment Hyaline Casts Urine Mucus Micro UA Comment Ur Microscopic Review Urine Culture Comments - Imaging Imaging: ITS Impressions Chest X-Ray 03/22/18 16:29 CONCLUSION: No acute cardiopulmonary disease. 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 Iniguez -Monitor hmg/hct; transfuse as necessary -Diet as tolerated -From Surgical standpoint not much to offer; Will see PRN -Thank you for this consult Discussed Condition With: Dr. Davin Cesar - Attending Attestation I certify and attest that I personally examined the patient. RAMON documented our visit Unresectable duodenal cancer. S/P palliative bypass Anemia likely secondary to tumor bleeding No further surgical options. Will defer to GI and Oncology for management FU DR Webber in office MARY PABLO MD FACS
[2018-03-23] MEDS: Sod Chloride 0.9% Inj 1,000 ML IV.CONT SCH ×3 (08:49→19:33)
--- NOTE | 2018-03-23 09:00 | P.HPIM ---
History of Present Illness Service: Hospitalist Primary Care Physician: Kendall Foy MD Chief Complaint: Generalized weakness History of Present Illness: Ms. 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 Patient has received iron infusions as well as multiple transfusions before. She follows up with Dr. Viet Iniguez with regards to her duodenal cancer. The plan is to consider chemotherapy once she recovers from surgery. For the last 2-3 days prior to this admission, patient has been experiencing generalized weakness and having difficulty walking. She did not have any dizziness or lightheadedness. No chest pain, shortness of breath. She has some abdominal pain due to recent surgery. No changes in bowel or bladder habits except for dark stool on today 03/23/2018. Upon admission, patient's hemoglobin was 9.0. Hemoglobin dropped to 7.7 today. Past medical history: Recently diagnosed duodenal cancer, hypertension, PVD Past surgical history: Partial Whipple surgery Social history: Patient has a history of smoking. However she does not currently smoke, drink or uses illicit drugs. Family history: Sister had cancer. Review of Systems Review of Systems: all other systems reviewed are negative [facility] Social History Social History Substance History: No History of Abuse Second Hand Smoke Exposure: No Smoking Status: Former smoker Tobacco Type: Cigarettes How Often Do You Have a Drink Containing Alcohol: 2 to 4 times a month Recent Travel in [facility] within the Last 8 Weeks: No Recent Out of Country Travel within the Last 8 Weeks: No Immunization History Tetanus Immunization: Unsure Medications and Allergies Allergies Allergy/AdvReac Type Severity Reaction Status Date / Time No Known Allergies Allergy Verified 03/22/18 13:55 Home Medications Medication Instructions Recorded Confirmed Type amlodipine 10 mg PO DAILY 10/10/17 03/22/18 History multivitamin 1 tab PO DAILY 10/10/17 03/22/18 History ranitidine HCl 150 mg PO HS 11/05/17 03/22/18 History aspirin 81 mg PO DAILY 03/08/18 03/22/18 History Active Medications: Active Medications Acetaminophen (Tylenol) 650 mg PO Q4H PRN PRN Reason: Temp > 100.4 Last Admin: 03/22/18 23:35 Dose: 650 mg Al Hydroxide/Mg Hydroxide (Milk Of Magnesia Liq) 30 ml PO Q12H PRN PRN Reason: Mild Constipation Amlodipine Besylate (Norvasc) 10 mg PO DAILY [facility] Bisacodyl (Dulcolax Supp) 10 mg RECTAL DAILY PRN PRN Reason: SEVERE CONSITIPATION Sodium Chloride (Ns Inj) 1,000 mls @ 100 mls/hr IV.CONT .Q10H [facility] Last Admin: 03/23/18 08:49 Dose: 100 mls/hr Lactulose (Lactulose Liq) 30 ml PO DAILY PRN PRN Reason: SEVERE CONSITIPATION Metoprolol Tartrate (Lopressor) 25 mg PO BID [facility] Non-Formulary Medication (Multivitamin [Multivitamin]) 1 tab PO DAILY [facility] Ondansetron HCl (Zofran Inj) 4 mg IV.PUSH Q6H PRN PRN Reason: NAUSEA OR VOMITING Pantoprazole Sodium (Protonix Inj) 40 mg IV.PUSH Q24H [facility] Sennosides (Senokot) 17.2 mg PO Q12H PRN PRN Reason: Moderate Constipation Sodium Chloride (Ns Flush) 2 ml IV.FLUSH PRN PRN PRN Reason: FLUSH AFTER USING IV ACCESS Last Admin: 03/22/18 18:42 Dose: 2 ml Sodium Chloride (Ns Flush) 2 ml IV.FLUSH BID [facility] Last Admin: 03/23/18 08:51 Dose: 2 ml Physical Exam Vital signs: Vital Signs 03/22/18 13:50 03/22/18 16:41 03/22/18 18:06 Temperature 98.5 F Pulse Rate 88 91 H 88 Respiratory Rate 16 18 18 Blood Pressure 148/68 H 169/71 H 164/64 H Pulse Oximetry 99 97 97 03/22/18 19:44 03/23/18 00:10 03/23/18 00:30 Temperature Pulse Rate 84 79 Respiratory Rate 20 Blood Pressure 171/74 H Pulse Oximetry 03/23/18 01:05 03/23/18 04:00 03/23/18 08:45 Temperature 96.9 F L 97.2 F L 98.5 F Pulse Rate 79 78 81 Respiratory Rate 20 20 16 Blood Pressure 150/68 H 146/67 H 146/87 H Pulse Oximetry 96 95 96 Intake & Output 03/22/18 03/23/18 03/23/18 18:59 06:59 18:59 Intake Total 1000 / 1000 Balance 1000 / 1000 Weight 60 kg 59.8 kg Intake: IV 1000 / 1000 NS Inj 1,000 ML @ 100 mls/hr IV 1000 / 1000 .CONT .Q10H [facility] Rx#:[id number] Oral 0 / 0 Other: # Voids 1 # Bowel Movements 1 Narrative: GENERAL: This is a well-nourished, well-developed patient, in no apparent distress. SKIN: No rashes, ecchymoses or lesions. Warm and dry. HEAD: Atraumatic. Normocephalic. No temporal or scalp tenderness. EYES: Pupils equal round and reactive. No injection or drainage. ENT: Nose without bleeding, purulent drainage or septal hematoma. Airway patent. NECK: Trachea midline. No lymphadenopathy. Supple, nontender, no meningeal signs. CARDIOVASCULAR: Regular rate and rhythm without murmurs, gallops, or rubs. No JVD. RESPIRATORY: Clear to auscultation. Breath sounds equal bilaterally. No wheezes , rales, or rhonchi. GASTROINTESTINAL: Abdomen soft, non-tender, nondistended. No guarding. Surgical incision appears to be intact and no erythema or drainage noted. MUSCULOSKELETAL: Extremities without clubbing, cyanosis, or edema. NEUROLOGICAL: Awake and alert. Cranial nerves II through XII intact. No focal neurological deficits. Normal speech. Results Labs CBC & Chem 7: 03/23/18 05:40 03/23/18 05:40 Imaging Impressions Chest X-Ray 03/22/18 16:29 CONCLUSION: No acute cardiopulmonary disease. Caprini VTE Risk Assessment Caprini VTE Risk Assessment: Moderate/High Risk (score >= 2) Caprini Risk Assessment Model: Point Value = 1 Point Value = 2 Point Value = 3 Point Value = 5 Age 41-60 Minor surgery BMI > 25 kg/m2 Swollen legs Varicose veins or History of unexplained or recurrent spontaneous Oral contraceptives or hormone replacement Sepsis (< 1 month) Serious lung disease, including pneumonia (< 1 month) Abnormal pulmonary function Acute myocardial infarction Congestive heart failure (< 1 month) History of inflammatory bowel disease Medical patient at bed rest Age 61-74 Arthroscopic surgery Major open surgery (> 45 min) Laparoscopic surgery (> 45 min) Malignancy Confined to bed (> 72 hours) Immobilizing plaster cast Central venous access Age >= 75 History of VTE Family history of VTE Factor V Leiden Prothrombin [id number] Lupus anticoagulant Anticardiolipin antibodies Elevated serum homocysteine Heparin-induced thrombocytopenia Other congenital or acquired thrombophilia Stroke (< 1 month) Elective arthroplasty Hip, pelvis, or leg fracture Acute spinal cord injury (< 1 month) Prophylaxis Regimen: Total Risk Factor Score Risk Level Prophylaxis Regimen 0-1 Low Early ambulation 2 Moderate Order ONE of the following: *Sequential Compression Device (SCD) *Heparin 5000 units SQ BID 3-4 Higher Order ONE of the following medications: *Heparin 5000 units SQ TID *Enoxaparin/Lovenox 40 mg SQ daily (WT < 150 kg, CrCl > 30 mL/min) *Enoxaparin/Lovenox 30 mg SQ daily (WT < 150 kg, CrCl > 10-29 mL/min) *Enoxaparin/Lovenox 30 mg SQ BID (WT < 150 kg, CrCl > 30 mL/min) AND/OR *Sequential Compression Device (SCD) 5 or more Highest Order ONE of the following medications: *Heparin 5000 units SQ TID (Preferred with Epidurals) *Enoxaparin/Lovenox 40 mg SQ daily (WT < 150 kg, CrCl > 30 mL/min) *Enoxaparin/Lovenox 30 mg SQ daily (WT < 150 kg, CrCl > 10-29 mL/min) *Enoxaparin/Lovenox 30 mg SQ BID (WT < 150 kg, CrCl > 30 mL/min) AND *Sequential Compression Device (SCD) Assessment and Plan Plan Ms. 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 She did not have any dizziness or lightheadedness but she experienced difficulty walking. Today 03/23/2018, patient noted dark stool. Generalized weakness Anemia likely due to acute GI loss Duodenal cancer status post Whipple procedure We will continue IV Protonix. Currently n.p.o. for possible EGD. Discussed with general surgery. No surgical intervention at this point. We will also discuss with hematology oncologist Dr. Iniguez. Hypertension PVD Continue amlodipine 10 mg daily, metoprolol 25mg BID. Patient will likely benefit from antiplatelet medications for PVD. However given her total cancer history and GI bleed it would be reasonable to hold antiplatelets for now. Unconfirmed history of irregular heartbeat Patient's mentioned that she was going to be evaluated by trimming operator for irregular heartbeat. Currently she is in sinus rhythm. Continue metoprolol. Outpatient follow-up with cardiology. Full code. SCDs for now.
[2018-03-23] MEDS: Pantoprazole Inj 40 MG Vial IV.PUSH SCH (10:20)
[2018-03-23] MEDS: Metoprolol Tartrate 25 MG Tablet PO SCH ×2 (10:29→21:46)
[2018-03-23] MEDS: amLODIPine 10 MG Tablet PO SCH (10:29)
[2018-03-23] MEDS ORDERED: Lidocaine PF 1% Inj 5 ML Syringe OTHER ONE (16:45)
--- NOTE | 2018-03-23 17:08 | GIPROC ---
[facility] [address], [id number] EGD PROCEDURE REPORT EXAM DATE: 03/23/2018 PATIENT NAME: Gracie Csear MR #: [id number] BIRTHDATE: 1945 ATTENDING: Dory Barrera MD ORDER #: [id number] PATIENT SUPPORT SPECIALIST: Oh Lloyd and Michelle Stoll STATUS: inpatient INDICATIONS: The patient is a 72 yr old female here for an EGD due to acute post hemorrhagic anemia PROCEDURE PERFORMED: EGD, diagnostic MEDICATIONS: None and Per Anesthesia. TOPICAL ANESTHETIC: CONSENT: The patient understands the risks and benefits of the procedure and understands that these risks include, but are not limited to: sedation, allergic reaction, infection, perforation and/or bleeding. Alternative means of evaluation and treatment include, among others: physical exam, x-rays, and/or surgical intervention. The patient elects to proceed with this endoscopic procedure. medical equipment was checked for proper function. Hand hygiene and appropriate measures for infection prevention was taken. After the risks, benefits and alternatives of the procedure were thoroughly explained, Informed consent was verified, confirmed and timeout was successfully executed by the treatment team. The patient was anesthetized with topical anesthesia and the Pentax EG-[id number] endoscope was introduced through the mouth and advanced to the second portion of the duodenum. Retroflexed views revealed no abnormalities The gastroscope was then slowly withdrawn and removed. ESOPHAGUS: There was LA Class A esophagitis noted. STOMACH: The mucosa of the stomach appeared normal. DUODENUM: Large partially obstructing mass in the first portion of the duodenum, encasing the duodenum. Multiple areas of oozing seen from the tumor mass. Able to pass scope beyond the mass remainder of small bowel normal. ADVERSE EVENTS: There were no complications. IMPRESSIONS: 1. There was LA Class A esophagitis noted 2. The mucosa of the stomach appeared normal 3. Large partially obstructing mass in the first portion of the duodenum, encasing the duodenum. Multiple areas of oozing seen from the tumor mass. Able to pass scope beyond the mass remainder of small bowel normal 4. Retroflexed views revealed no abnormalities RECOMMENDATIONS: 1. Continue PPI 2. Monitor labs, Discussed with Dr Iniguez. Consider IR /embolization if further bleeding. Liquid diet. GI will sign off. Thank you PATIENT CONDITION: stable DISPOSITION: Inpatient REPEAT EXAM: NONE Dory Barrera MD eSigned: Dory Barrera MD 03/23/2018 5:08 PM cc: PATIENT NAME: Gracie Cesar MR#: [id number]
--- NOTE | 2018-03-23 17:35 | MB ---
cc: Todd Iniguez MD DATE: 03/23/2018 REASON FOR CONSULTATION: Oncology consult for opinion regarding duodenal cancer. HISTORY OF PRESENT ILLNESS: The patient is a 72-year-old female recently diagnosed with duodenal cancer. She had exploratory laparotomy with an open cholecystectomy and a Jerrell-en-Y gastrojejunostomy procedure done on 03/08/2018. She was doing well until about 2 days ago when she experienced increased weakness. She has brought into the hospital and hemoglobin was 9. This morning, hemoglobin trended down to 7.7. She had a large dark black stool this morning. She has soreness around the surgical site. She has some dizziness. She has no headache or visual changes. She has no chest pain or palpitation. She has no shortness of breath, cough. She denies any nausea or vomiting. She denies any abdominal pain. She has no change in urinary habits. PAST MEDICAL HISTORY: 1. Duodenal cancer. 2. Hypertension. 3. Peripheral arterial disease. 4. Anemia. 5. History of left lower extremity deep venous thrombosis. 6. Chronic obstructive pulmonary disease. 7. Gastroesophageal reflux disease. PAST SURGICAL HISTORY: 1. Recent exploratory laparotomy with cholecystectomy, open Ejrrell-en-Y and a gastrojejunostomy. 2. Colonoscopy. 3. Upper endoscopy. FAMILY HISTORY: Sister had cancer. SOCIAL HISTORY: Quit tobacco 12 years ago. She has about a [id number] smoking history. She drinks occasionally. ALLERGIES: NO KNOWN DRUG ALLERGIES. CURRENT MEDICATIONS: 1. Norvasc. 2. Metoprolol. 3. Multivitamin. 4. Protonix. REVIEW OF SYSTEMS: CONSTITUTIONAL: As above. EYES: Negative. ENT: Negative. CARDIOVASCULAR: No chest pressure or palpitation. RESPIRATORY: No shortness of breath, cough. GASTROINTESTINAL: As above. GENITOURINARY: Negative. MUSCULOSKELETAL: Negative. HEMATOLOGIC: As above. ENDOCRINE: Negative. DERMATOLOGY: Negative. PSYCHIATRY: Negative. NEUROLOGIC: Negative. PHYSICAL EXAMINATION: VITAL SIGNS: Temperature 98.9, blood pressure 133/68, O2 saturation 99%. GENERAL: She is alert, oriented x3, no acute distress. She looked pale. HEENT: Atraumatic, normocephalic. Pupils are equal, round, reactive to light. Extraocular muscles are intact. No scleral icterus. Oropharynx with dry mucosa. No lesion, no thrush. No mucositis. NECK: No thyromegaly. No palpable mass. LYMPHATIC: No palpable cervical, clavicular, axillary lymph nodes. CARDIOVASCULAR: Regular S1, S2. No murmur. LUNGS: Clear to auscultation. No wheezing, no rhonchi. ABDOMEN: Soft. Midline surgical scar noted. Steri-Strips are in place. There is some soreness. No erythema noted. No wound breakdown noted. No rebound or rigidity. EXTREMITIES: No cyanosis, clubbing or edema. SKIN: No rash or petechiae. NEUROLOGIC: Nonfocal. LABORATORY DATA: Reviewed her blood work drawn during this hospital stay. ASSESSMENT: 1. Duodenal adenocarcinoma. She first presented with GI bleed and upper endoscopy showed ulcer and biopsy showed atypical cells suspicious for malignancy. A CT showed a 5.6 mass associated with lexii hepatis. She had endoscopic ultrasound 01/2018, which again showed large ulcer in the duodenum. The tumor penetrated the serosa and invaded adjacent structure. There was also vascular involvement. There were multiple lymph nodes noted. 2. Clinical stage T4b, N2. She underwent an open exploratory laparotomy 03/08/2018. She was noted to have a large mass encasing the vascular structure. The tumor was not resectable. A biopsy was done, which showed adenocarcinoma. She had a Jerrell-en-Y gastrojejunostomy done. I have discussed the case with Dr. Webber. The plan is to give patient chemotherapy. If the tumor could be adequately debulked, the patient may be a candidate for resection at that time. If not, she may be treated with radiation with concurrent chemotherapy. Her PET scan and workup did not show any distant metastasis. 3. Anemia, likely gastrointestinal bleed. She presented with hemoglobin of 9 and trended down to 7.7 this morning. This morning, reportedly, she had a large black stool. She is awaiting upper endoscopy. 2. Peripheral arterial disease, status post placement of right lower extremity arterial stent. At one point, she was on Plavix, but it has been discontinued. 3. Chronic obstructive pulmonary disease. She has no symptoms. 4. Gastroesophageal reflux disease. 5. Hypertension. PLAN: 1. Await GI workup. 2. Recommend transfusion to keep hemoglobin around 8 given that she has a GI bleed. 3. Told the patient to follow Dr. Webber for port placement after discharge from hospital. She will followup in oncology clinic. I plan to start her on chemotherapy in another 2-3 weeks after she is adequately healed from recent surgery. 4. Discussed with the patient and her and their questions were answered. Thank you for asking me to see this patient. MD RANJIT Farias/junior , 04:46 PM , 05:02 PM
--- NOTE | 2018-03-23 17:40 | MB ---
cc: Dory Barrera MD, Shahabuddin DO DATE: 03/23/2018 REASON FOR CONSULTATION: Melena, anemia, recent history of duodenal cancer with partial Whipple procedure. HISTORY OF PRESENT ILLNESS: The patient is a 72-year-old lady who basically said she was feeling weak and dizzy for the last couple of days. When the dizziness got progressively worse, she came to the hospital, was found to have a hemoglobin of 7.7. She does give history of melena, but no other symptoms. PAST MEDICAL HISTORY: Duodenal cancer, hypertension, peripheral vascular disease. PAST SURGICAL HISTORY: Recent partial Whipple surgery. SOCIAL HISTORY: Previous history of smoking. No alcohol reported. FAMILY HISTORY: Cancer in the sister. REVIEW OF SYSTEMS: Currently, the patient denies any active bleeding. There is no nausea or vomiting. ALLERGIES: NONE DOCUMENTED. MEDICINES ON ADMISSION: 1. Amlodipine. 2. Ranitidine. 3. Aspirin. PHYSICAL EXAMINATION: GENERAL: Reveals a well-nourished lady in no apparent distress. VITAL SIGNS: Stable. HEAD AND NECK: Anicteric sclerae. LUNGS: Bilateral air entry with rales. ABDOMEN: Soft, nontender. No hepatosplenomegaly. Bowel sounds are present. CENTRAL NERVOUS SYSTEM: Nonfocal. RECTAL: Deferred at this time. LABORATORY DATA: Reveal hemoglobin of 7.7, creatinine is 0.52. IMPRESSION: 1. Melena and gastrointestinal bleeding 2. Recent history of duodenal surgery with renal cancer. RECOMMENDATIONS: 1. The patient is n.p.o. for EGD for today. Continue to monitor labs. Transfuse as necessary. 2. Protonix 40 mg daily is recommended. 3. Further recommendation to follow after the endoscopy today. Thank you for this referral. MD YEHUDA Stevens/junior , 04:48 PM , 04:55 PM
[2018-03-24] MEDS: Sod Chloride 0.9% Inj 1,000 ML IV.CONT SCH ×2 (03:15→09:49)
[2018-03-24] MEDS: Pantoprazole Inj 40 MG Vial IV.PUSH SCH (08:46)
[2018-03-24] MEDS: amLODIPine 10 MG Tablet PO SCH (08:47)
[2018-03-24] MEDS: Metoprolol Tartrate 25 MG Tablet PO SCH (08:47)
--- NOTE | 2018-03-24 09:50 | P.PNIM ---
Subjective Interval history: Follow up for duodenal cancer, upper GI bleed related anemia. Elena is doing well. Had EGD yesterday. GI Signed off. If further bleeding happen, GI recommends IR directed embolization. Physical Exam Vital signs: Vital Signs 03/23/18 12:24 03/23/18 13:10 03/23/18 15:31 Temperature 96.9 F L 98.9 F Pulse Rate 67 76 Respiratory Rate 16 18 16 Blood Pressure 130/60 133/68 Pulse Oximetry 99 03/23/18 17:08 03/23/18 17:30 03/23/18 20:00 Temperature 99.3 F 98.0 F Pulse Rate 76 73 74 Respiratory Rate 14 16 20 Blood Pressure 110/52 L 121/63 142/59 H Pulse Oximetry 98 99 94 L 03/23/18 20:30 03/23/18 23:55 03/24/18 00:00 Temperature 97.2 F L Pulse Rate 77 69 Respiratory Rate 18 20 Blood Pressure 143/64 H Pulse Oximetry 94 L 03/24/18 00:25 03/24/18 04:00 03/24/18 04:20 Temperature 98.3 F Pulse Rate 65 75 72 Respiratory Rate 20 Blood Pressure 157/67 H Pulse Oximetry 94 L 03/24/18 09:40 Temperature Pulse Rate Respiratory Rate 18 Blood Pressure Pulse Oximetry Intake & Output 03/23/18 03/24/18 03/24/18 18:59 06:59 18:59 Intake Total 400 / 400 1000 / 1000 240 / 240 Output Total 400 / 400 200 / 200 Balance 0 / 0 1000 / 1000 40 / 40 Intake: IV 1000 / 1000 NS Inj 1,000 ML @ 100 mls/hr IV 1000 / 1000 .CONT .Q10H [facility] Rx#:[id number] Oral 0 / 0 240 / 240 Anesthesia Amount 400 / 400 Output: Urine 400 / 400 200 / 200 Other: # Voids 1 Date of Last Bowel Movement 03/23/18 03/23/18 Narrative: GENERAL: Alert, NAD. SKIN: Warm and dry. HEAD: Normocephalic. EYES: No scleral icterus. No injection or drainage. NECK: Supple, trachea midline. No JVD or lymphadenopathy. CARDIOVASCULAR: Regular rate and rhythm without murmurs, gallops, or rubs. RESPIRATORY: Breath sounds equal bilaterally. No accessory muscle use. GASTROINTESTINAL: Abdomen soft, non-tender, nondistended. MUSCULOSKELETAL: No cyanosis, or edema. BACK: Nontender without obvious deformity. No CVA tenderness. Results Labs CBC & Chem 7: 03/24/18 10:56 03/23/18 05:40 Assessment and Plan Plan Ms. 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 She did not have any dizziness or lightheadedness but she experienced difficulty walking. Today 03/23/2018, patient noted dark stool. Generalized weakness Anemia likely due to acute GI loss Duodenal cancer status post Whipple procedure -Continue PPI. EGD shows mass with blood oozing. Discussed with general surgery. No surgical intervention at this point. Heme/onc evaluated patient. Transfuse if Hgb < 8.0. Hgb went from 7.7 --> 8.4. No evidence of further blood loss. -Will discharge patient. If further bleed occurs, patient may need embolization by Interventional radiology. Hypertension PVD Continue amlodipine 10 mg daily, metoprolol 25mg BID. Patient will likely benefit from antiplatelet medications for PVD. However given her total cancer history and GI bleed it would be reasonable to hold antiplatelets for now. Unconfirmed history of irregular heartbeat Patient's mentioned that she was going to be evaluated by coupon redemption clerk for irregular heartbeat. Currently she is in sinus rhythm. Continue metoprolol. Outpatient follow-up with cardiology. Full code. SCDs. Discharge patient to home Condition on discharge: Improved Regular Diet as tolerated Ad Nirmala activity Rx written: Protonix 40mg BID X 2 weeks then once a day Discontinue Aspirin. Follow-up with primary care physician PRN. Follow up with Gen surgery, Heme/ Onc. Progress Note: Quality VTE Deep Vein Thrombosis/Pulmonary Embolism Present on Admission: No
[2018-03-24 11:15] LABS: Hematocrit 26.1 % (35.0-46.0); Hemoglobin 8.4 gm/dL (11.6-15.3)
--- NOTE | 2018-03-24 11:39 | P.PNGS ---
Subjective Interval history: Resting in bed Painful; would like a pain pill Physical Exam Vital signs: Vital Signs 03/23/18 12:24 03/23/18 13:10 03/23/18 15:31 Temperature 96.9 F L 98.9 F Pulse Rate 67 76 Respiratory Rate 16 18 16 Blood Pressure 130/60 133/68 Pulse Oximetry 99 03/23/18 17:08 03/23/18 17:30 03/23/18 20:00 Temperature 99.3 F 98.0 F Pulse Rate 76 73 74 Respiratory Rate 14 16 20 Blood Pressure 110/52 L 121/63 142/59 H Pulse Oximetry 98 99 94 L 03/23/18 20:30 03/23/18 23:55 03/24/18 00:00 Temperature 97.2 F L Pulse Rate 77 69 Respiratory Rate 18 20 Blood Pressure 143/64 H Pulse Oximetry 94 L 03/24/18 00:25 03/24/18 04:00 03/24/18 04:20 Temperature 98.3 F Pulse Rate 65 75 72 Respiratory Rate 20 Blood Pressure 157/67 H Pulse Oximetry 94 L 03/24/18 08:00 03/24/18 09:40 Temperature 97.8 F Pulse Rate 86 Respiratory Rate 20 18 Blood Pressure 118/56 L Pulse Oximetry 98 Intake & Output 03/23/18 03/24/18 03/24/18 18:59 06:59 18:59 Intake Total 400 / 400 1000 / 1000 240 / 240 Output Total 400 / 400 200 / 200 Balance 0 / 0 1000 / 1000 40 / 40 Intake: IV 1000 / 1000 NS Inj 1,000 ML @ 100 mls/hr IV 1000 / 1000 .CONT .Q10H [facility] Rx#:[id number] Oral 0 / 0 240 / 240 Anesthesia Amount 400 / 400 Output: Urine 400 / 400 200 / 200 Other: # Voids 1 Date of Last Bowel Movement 03/23/18 03/23/18 Narrative: Alert and awake Abd: soft; incision healing; Steri Strips in place Results - Labs 03/24/18 10:56 03/23/18 05:40 Laboratory Results - last 24 hr 03/24/18 10:56 Hgb 8.4 L Hct 26.1 L - Imaging Imaging: ITS Impressions Chest X-Ray 03/22/18 16:29 CONCLUSION: No acute cardiopulmonary disease. Assessment and Plan - Plan 72 year old female s/p palliative bypass and open cholecystectomy for locally advanced duodenal carcinoma on Mar 08, 2018 -Oncology following -EGD noted -Will have patient follow up for port placement
== END 2018-03-24 14:30 | disposition home or self-care (01) ==
LOC: PHEDA 13:42 → PHED 13:42 → PH3 03-23 00:51
PROVIDERS: ADMIT Hospitalist; ATTEND Hospitalist
PROC: PANENDO (2018-03-23 16:45)
DX: J44.9 Chronic obstructive pulmonary disease, unspecified; Z85.528 Personal history of other malignant neoplasm of kidney; Z79.82 Long term (current) use of aspirin; Z87.891 Personal history of nicotine dependence; Z87.09 Personal history of other diseases of the respiratory system; I10 Essential (primary) hypertension; K26.4 Chronic or unspecified duodenal ulcer with hemorrhage; K21.9 Gastro-esophageal reflux disease without esophagitis; D64.9 Anemia, unspecified; Z79.899 Other long term (current) drug therapy; Z98.51 Tubal ligation status; I73.9 Peripheral vascular disease, unspecified; Z80.9 Family history of malignant neoplasm, unspecified; C17.0 Malignant neoplasm of duodenum; Z90.49 Acquired absence of other specified parts of digestive tract; Z86.718 Personal history of other venous thrombosis and embolism; Z85.068 Personal history of other malignant neoplasm of small intestine; Z90.411 Acquired partial absence of pancreas; R53.1 Weakness
CPT/HCPCS: 71010; 71045; 80053; 81001; 82550; 83520; 83690; 83880; 84484; 85014; 85018; 85025; 90774; 96361; 96374; 96376; 97161; 99285; C8952; C9113; G0378; G8987; G8988; J2704; J7030